=== PATIENT | female | born 1955 | race Caucasian/White ===

== ENCOUNTER 2020-09-28 12:32 | Outpatient (CLI) | payer MEDICARE, OTHER, SELFPAY ==
--- NOTE | 2020-09-28 12:54 | ECG_ITS ---
Measurements Intervals [place] Rate: 73 P: 57 MO: 180 QRS: -39 QRSD: 108 T: 30 QT: 423 QTc: 469 Interpretive Statements SINUS RHYTHM LEFT AXIS DEVIATION INCOMPLETE RIGHT BUNDLE BRANCH BLOCK VOLTAGE CRITERIA FOR LVH MINIMAL Q WAVES- HIGH LATERAL LEADS BORDERLINE ECG Electronically Signed On 09-28-2020 15:17:46 CDT by Antwon Amezcua D.O.
[2020-09-28 13:00] LABS: Anion Gap 6 mmol/L (8-16); Blood Urea Nitrogen 19 mg/dL (7-17); Carbon Dioxide 30 mmol/L (22-30); Chloride 101 mmol/L (98-107); Estimated Glomerular Filt Rate 56; Glucose 95 mg/dL (65-105); Sodium 137 mmol/L (137-145)
== END 2020-09-28 12:33 | disposition home or self-care (01) ==
PROVIDERS: PCP Family Medicine; Visit Provider Anesthesiology
DX: Z01.818 Encounter for other preprocedural examination (principal); Z79.899 Other long term (current) drug therapy; I10 Essential (primary) hypertension
CPT/HCPCS: 36415; 80048; 93005

== ENCOUNTER 2020-10-02 01:16 | Day surgery (SDC) | payer MEDICARE, OTHER, SELFPAY ==
[2020-09-26 14:07] VITALS: BMI 38.5
[2020-10-02] VITALS (12 sets, daily range): BP systolic 115–157; BP diastolic 64–86; PULSE 68–85; RESP 12–16; TEMP 36.1; O2SAT 95–100
--- NOTE | 2020-10-02 07:25 | WPDHPUPDATE1 ---
History and Physical Update Update Date/Time: 10/02/20 07:25 History and Physical has been reviewed, including an updated exam of the patient. There are NO changes in the patient's condition. Risks, benefits, and alternatives have been discussed and questions answered. Patient agrees to proceed with procedure.
[2020-10-02] MEDS: ACETAMINOPHEN 500 MG TABLET 1000 MG PO (08:29)
[2020-10-02] MEDS: CELECOXIB 200 MG CAPSULE PO (08:30)
[2020-10-02] MEDS: LACTATED RINGERS 1,000 ML 30 ML IV CONT ×2 (08:45→11:02)
--- NOTE | 2020-10-02 09:24 | WPDANESEPPF ---
Anes - Initial Pre Proc Eval Procedure: Operation Date: 10/02/20 10:00 Proposed Procedures p Right Ring Finger and Right Thumb Trigger Finger Release - Jeet Rodriguez MD Date/Time: 10/02/20 09:24 Surgeon: Jeet Rodriguez MD Pre Op Diagnosis: right trigger finger Patient Data Age: 64 Gender: F Height: 1.69 m Weight: 108.1 kg Last Vital Signs Temp 97 F L 10/02/20 08:16 Pulse 85 10/02/20 08:16 Resp 16 10/02/20 08:16 BP 152/84 H 10/02/20 08:16 Pulse Ox 97 10/02/20 08:16 Allergies Allergy/AdvReac Type Severity Reaction Status Date / Time No Known Allergies Allergy Verified 10/02/20 08:23 Home Medications Medication Instructions Recorded Confirmed Type acetaminophen 325 mg tablet 325 mg PO Q6H PRN 09/17/20 10/02/20 History calcium carbonate 500 mg (1,250 1 tablet PO DAILY 09/17/20 10/02/20 History mg)-vitamin D3 200 unit tablet chlorthalidone 25 mg tablet 25 mg PO DAILY 09/17/20 10/02/20 History citalopram 20 mg tablet 20 mg PO DAILY 09/17/20 10/02/20 History fluticasone propionate 50 1 spray INTRANASAL PRN 09/17/20 10/02/20 History mcg/actuation nasal spray,suspension levothyroxine 75 mcg tablet 75 mcg PO DAILY 09/17/20 10/02/20 History loratadine 10 mg tablet 10 mg PO DAILY 09/17/20 10/02/20 History multivitamin 1 tablet PO DAILY 09/17/20 10/02/20 History omeprazole 20 mg tablet,delayed 20 mg PO DAILY 09/17/20 10/02/20 History release simvastatin 10 mg tablet 10 mg PO DAILY 09/17/20 10/02/20 History telmisartan 40 mg tablet 40 mg PO DAILY 09/17/20 10/02/20 History vitamins A,C,M-yuoz-[id number] 14,320 1 cap PO BID 09/17/20 10/02/20 History unit-226 mg-200 unit capsule PreserVision AREDS 1 tab-cap PO DAILY 10/02/20 10/02/20 History aspirin [Aspir-Low] 81 mg PO DAILY 10/02/20 10/02/20 History Patient hx anesthesia problems: none Family hx anesthesia problems: none [facility] Past Medical History Medical History (Updated 10/01/20 @ 14:34 by Robin Carbone MD) Hyperlipidemia Hypertension Hypothyroid KITTY (obstructive sleep apnea) Family History Family History Mother Family history of lung cancer, Onset Age: 65 Patient's mother is Sibling Family history of malignant neoplasm of breast in first degree relative Other Cerebrovascular accident Diabetes mellitus Family history of allergic disorder Hypertension Social History Social History Smoking status: Never smoker Alcohol intake: never Living arrangements: alone Spiritual care concerns: No Anes - Eval Final PreProcedure Day of Procedure 10/02/20 09:24 Patient weight: obese Heart: regular rate and rhythm Lungs: clear to auscultation Airway: Mallampati scale class III Neurological: alert and oriented Last oral intake: >/= 8 hours ASA classification: III Emergent: no Anesthetic plan: proceed Anesthesia type and monitoring: general LMA and standard monitoring Informed Consent: The patient's anesthetic plan and its attendant risks and benefits were discussed with the patient/family/POA. Questions were solicited and answers provided to the satisfaction of the patient/family/POA.
[2020-10-02] MEDS: ceFAZolin 2 GM/D5W 50 ML 2 GM/50 ML BAG IVPB (09:41)
[2020-10-02] MEDS: BUPIVACAINE HCL 0.5% PF 30 ML VIAL INFILTRATE (10:09)
--- NOTE | 2020-10-02 11:00 | W.PM.PROC2 ---
Procedure Note - Detailed Date of Procedure 10/02/20 Pre-op Diagnosis RIGHT RING FINGER AND THUMB TRIGGERING Post-op Diagnosis same Procedure Performed RELEASE OF A1 IVAN RIGHT RING FINGER AND THUMB Surgeon Jeet Rodriguez MD Anesthesia general Description of Procedure THE PATIENT WAS TAKEN TO THE OR IN STABLE CONDITION. THE RIGHT UPPER EXTREMITY WAS PREPPED AND DRAPED IN THE USUAL STERILE FASHION. THE TOURNIQUET WAS INFLATED. AN INCISION WAS MADE OVER THE RING FINGER A1 IVAN DOWN THROUGH THE SUBCUTANEOUS TISSUES UNTIL THE A1 IVAN SHEATH WAS VISUALIZED. AN INCISION WAS MADE OVER THE IVAN UNTIL THE FLEXOR TENDON WAS IDENTIFIED. THE INCISION CONTINUED PROXIMALLY AND DISTALLY UNTIL THE IVAN WAS RELEASED AND THE TENDON EXCURSION WAS WITHOUT TRIGGERING. THE TENDONS WERE DIRECTLY VISUALIZED AND WERE INTACT. NEXT AN INCISION WAS MADE OVER THE THUMB A1 IVAN DOWN THROUGH THE SUB CUTANEOUS TISSUES. BOTH DIGITAL NERVES WERE IDENTIFIED AND RETRACTED. THE A1 IVAN WAS THEN RELEASED PROXIMALLY AND DISTALLY UNTIL THE IVAN WAS COMPLETELY RELEASED. THE FLEXOR TENDONS WERE VISUALIZED THEY PASSED THROUGH THE SHEATH WITH NO TRIGGERING. THE TOURNIQUET WAS DEFLATED AND THE WOUNDS WERE WASHED AND THE BLEEDERS WERE CAUTERIZED. THE SKIN WAS REPAIRED WITH 4-0 NYLON. A STERILE DRESSING WAS APPLIED. THE PATIENT WAS EXTUBATED AND SENT TO RECOVERY ROOM. Estimated Blood Loss 1 Complications No immediate complications Condition stable Disposition PACU
[2020-10-02] MEDS: ONDANSETRON INJ 4 MG/2 ML VIAL IV PUSH (11:59)
[2020-10-02] MEDS: diphenhydrAMINE HCl INJ 50 MG/ML VIAL 6.25 MG IV PUSH (12:21)
== END 2020-10-02 13:58 | disposition home or self-care (01) ==
PROVIDERS: PCP Family Medicine; Visit Provider Orthopaedic Surgery
PROC: (CPT 26055; principal; 2020-10-02 10:00)
DX: M65.341 Trigger finger, right ring finger (principal); M65.311 Trigger thumb, right thumb; I10 Essential (primary) hypertension; E78.5 Hyperlipidemia, unspecified; E03.9 Hypothyroidism, unspecified; G47.33 Obstructive sleep apnea (adult) (pediatric); Z79.82 Long term (current) use of aspirin; E66.9 Obesity, unspecified; Z68.37 Body mass index [BMI] 37.0-37.9, adult
CPT/HCPCS: 26055 ×2; 36415; 80048; 93005; A9270; J0690; J1100; J1200; J2250; J2405; J2704; J3010; J7120

== ENCOUNTER 2021-01-03 09:14 | Emergency (ER) | payer MEDICARE, OTHER, SELFPAY ==
[2021-01-03 09:25] VITALS: BP 168/72; PULSE 74; RESP 163; TEMP 36.9; O2SAT 100
--- NOTE | 2021-01-03 10:09 | ED.EYEPROB ---
HPI - Eye Problem General Chief complaint: Eye Problems Stated complaint: right eye swelling Time Seen by Provider: 01/03/21 09:37 History of Present Illness HPI Narrative: Patient presents with eyelid swelling pain and erythema. She was seen by her primary care doctor little bit was put on antibiotics and her symptoms initially were improving and nearly resolved however this morning her symptoms appear to worsen she contacted her primary care doctor and referred to the ER for evaluation. Reports pain is achy, constant, is worse with palpation of her eyelid. She denies any changes to vision denies any fevers or dizziness Related Data Home Medications Medication Instructions Recorded Confirmed calcium carbonate 500 mg (1,250 1 tablet PO DAILY 09/17/20 12/23/20 mg)-vitamin D3 200 unit tablet chlorthalidone 25 mg tablet 25 mg PO DAILY 09/17/20 12/23/20 citalopram 20 mg tablet 20 mg PO DAILY 09/17/20 12/23/20 fluticasone propionate 50 1 spray INTRANASAL PRN 09/17/20 12/23/20 mcg/actuation nasal spray,suspension levothyroxine 75 mcg tablet 75 mcg PO DAILY 09/17/20 12/23/20 loratadine 10 mg tablet 10 mg PO DAILY 09/17/20 12/23/20 multivitamin 1 tablet PO DAILY 09/17/20 12/23/20 omeprazole 20 mg tablet,delayed 20 mg PO DAILY 09/17/20 12/23/20 release simvastatin 10 mg tablet 10 mg PO DAILY 09/17/20 12/23/20 PreserVision AREDS 1 tab-cap PO DAILY 10/02/20 12/23/20 aspirin 81 mg PO DAILY 10/02/20 12/23/20 mecobalamin (vitamin B12) 1,000 2,000 mcg SUBLINGUAL DAILY tablet 12/23/20 12/23/20 mcg disintegrating tablet,sublingual Allergies Allergy/AdvReac Type Severity Reaction Status Date / Time No Known Allergies Allergy Verified 01/03/21 09:32 Review of Systems Review of Systems: CONSTITUTIONAL: Denies fever, chills, or sweats. EYES: Denies visual changes, or discharge. ENT: Denies rhinorrhea, congestion, sore throat, or otalgia. CARDIOVASCULAR: Denies chest pain, palpitations, or edema. RESPIRATORY: Denies cough or dyspnea. GASTROINTESTINAL: Denies abdominal pain, nausea, vomiting, or diarrhea. GENITOURINARY: Denies dysuria or hematuria. SKIN: Denies rash or itching. MUSCULOSKELETAL: Denies back pain, joint pain, or myalgia. NEUROLOGIC: Denies headache, numbness, dizziness, or weakness. PSYCHIATRIC: Denies anxiety or depression. All systems reviewed & are unremarkable except as noted in HPI and below PMFSH Past Medical History Medical History Carpal tunnel syndrome Cataract GERD (gastroesophageal reflux disease) H/O retinal detachment Hyperlipidemia Hypertension Hypothyroid KITTY (obstructive sleep apnea) Surgical History Surgical History History of carpal tunnel surgery (~2018) History of eye surgery (~1989) Hx of cataract extraction (~2019) S/P cervical disc replacement (~2006) Family History Family History Mother Family history of lung cancer, Onset Age: 65 Patient's mother is Sibling Family history of malignant neoplasm of breast in first degree relative Other Cerebrovascular accident Diabetes mellitus Family history of allergic disorder Hypertension Social History Social History Second hand tobacco smoke exposure: No Alcohol intake: never Substance use: never Substance use type: does not use 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 HEAD: Normocephalic, atraumatic. EYES: PERRLA and EOMI without pain. There is erythema and edema to the upper eyel
== END 2021-01-03 10:48 | disposition home or self-care (01) ==
PROVIDERS: Emergency Provider Emergency Medicine; PCP Family Medicine
DX: L03.213 Periorbital cellulitis (principal); Z79.82 Long term (current) use of aspirin; K21.9 Gastro-esophageal reflux disease without esophagitis; E78.5 Hyperlipidemia, unspecified; I10 Essential (primary) hypertension; E03.9 Hypothyroidism, unspecified; G47.33 Obstructive sleep apnea (adult) (pediatric); Z98.49 Cataract extraction status, unspecified eye
CPT/HCPCS: 99281; 99283

== ENCOUNTER 2021-06-19 16:55 | Outpatient (CLI) | payer MEDICARE, OTHER, SELFPAY ==
--- NOTE | ~2021-06-19 | MM_ITS ---
EXAMINATION: MM screening madonna BI w efrain HISTORY: Screening mammogram TECHNIQUE: Craniocaudal and mediolateral oblique 3-D tomosynthesis images were obtained and synthetic 2-D images were generated. CAD analysis was submitted and interpreted. COMPARISON: 02/06/2018, 08/09/2015 bilateral screening mammogram examinations BREAST PARENCHYMAL COMPOSITION: The breasts are almost entirely fatty. FINDINGS: New approximately 6 mm irregular mass is noted posteriorly in the mid-lower lower central l eft breast. Diagnostic left mammogram and left breast ultrasound examination are recommended. There i s no evidence of suspicious mass, calcification, or architectural distortion to suggest malignancy in either breast. There has been no suspicious interval change. IMPRESSION: 1. Approximately 6 mm new irregular mass in posterior mid to lower central left breast 2. Diagnostic left mammogram and left breast ultrasound examination are recommended. BI-RADS Category 0: Incomplete: Needs additional imaging evaluation......... Reviewed, dictated and finalized at location A. IMPRESSION: 1. Approximately 6 mm new irregular mass in posterior mid to lower central left breast 2. Diagnostic left mammogram and left breast ultrasound examination are recomme nded. BI-RADS Category 0: Incomplete: Needs additional imaging evaluation.........
== END 2021-06-19 16:56 | disposition home or self-care (01) ==
PROVIDERS: PCP Family Medicine; Visit Provider Family Medicine
DX: Z12.31 Encounter for screening mammogram for malignant neoplasm of breast (principal); R92.8 Other abnormal and inconclusive findings on diagnostic imaging of breast
CPT/HCPCS: 77063; 77067

== ENCOUNTER 2021-06-26 02:06 | Day surgery (SDC) | payer MEDICARE, OTHER, SELFPAY ==
[2021-06-17 11:15] VITALS: BMI 38.9
[2021-06-26 11:40] VITALS: BP 148/81; PULSE 75; RESP 18; TEMP 36.9; O2SAT 100; BMI 37.3
--- NOTE | 2021-06-26 12:02 | WPDGICN ---
Assessment and Plan Assessment and plan (1) Positive colorectal cancer screening using Cologuard test: Code(s): R19.5 - Other fecal abnormalities Status: Acute Assessment and Plan: Patient found to have a positive Cologuard test. Plan is for neoplasia screening. Further recommendations will be given after colonoscopy. GI Consult Note Consult date/time: 06/26/21 12:02 HPI: Alice Scott is a 65 year old female Presents for screening colonoscopy. Patient recently found to have positive Cologuard test. She reports that her current weight appetite and bowel movements are normal. She denies abdominal pain. She has had no bleeding. Family history is noncontributory. Patient presents today for neoplasia screening. Review of Systems Review of Systems: All systems reviewed & are unremarkable except as noted in HPI and below PMFSH Past Medical History Medical History Carpal tunnel syndrome Cataract GERD (gastroesophageal reflux disease) H/O retinal detachment Hyperlipidemia Hypertension Hypothyroid KITTY (obstructive sleep apnea) Surgical History Surgical History History of carpal tunnel surgery (~2018) History of eye surgery (~1989) Hx of cataract extraction (~2019) S/P cervical disc replacement (~2006) Family History Family History Mother Family history of lung cancer, Onset Age: 65 Patient's mother is Sibling Family history of malignant neoplasm of breast in first degree relative Other Cerebrovascular accident Diabetes mellitus Family history of allergic disorder Hypertension Social History Social History Smoking status: Never smoker Second hand tobacco smoke exposure: No Alcohol intake: never Substance use: never Substance use type: does not use Living arrangements: with family 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 Gender identity (if verbalized by the patient): Female Sexual Orientation (if Verbalized by the Patient): Straight or Heterosexual Spiritual care concerns: No Agree to blood products: Yes Meds Home Medications and Allergies Home Medications Medication Instructions Recorded Confirmed Type calcium carbonate 500 mg-vitamin 1 tablet PO DAILY 09/17/20 06/26/21 History D3 5 mcg (200 unit) tablet fluticasone propionate 50 1 spray INTRANASAL PRN 09/17/20 06/26/21 History mcg/actuation nasal spray,suspension levothyroxine 75 mcg tablet 75 mcg PO DAILY 09/17/20 06/26/21 History loratadine 10 mg tablet 10 mg PO DAILY 09/17/20 06/26/21 History multivitamin 1 tablet PO DAILY 09/17/20 06/26/21 History simvastatin 10 mg tablet 10 mg PO DAILY 09/17/20 06/26/21 History PreserVision AREDS 2 tab-cap PO DAILY 10/02/20 06/26/21 History aspirin 81 mg PO DAILY 10/02/20 06/26/21 History telmisartan 40 mg tablet 60 mg PO DAILY #135 tablet 11/26/20 06/26/21 Rx mecobalamin (vitamin B12) 1,000 1,000 mcg SUBLINGUAL DAILY tablet 12/23/20 06/26/21 History mcg disintegrating tablet,sublingual chlorthalidone 25 mg tablet 25 mg PO DAILY #90 tablet 02/27/21 06/26/21 Rx citalopram 20 mg tablet 20 mg PO DAILY #90 tablet 02/27/21 06/26/21 Rx montelukast 10 mg tablet 10 mg PO QHS #90 tablet 05/07/21 06/26/21 Rx omeprazole 40 mg capsule,delayed 40 mg PO DAILY #90 cap 05/07/21 06/26/21 Rx release metoprolol succinate 25 mg PO HS 06/17/21 06/26/21 History Allergies Allergy/AdvReac Type Severity Reaction Status Date / Time No Known Allergies Allergy Verified 06/26/21 11:52 Vital Signs Vital Signs - 24 hr 06/26/21 11:40 Temperature 98.5 F Pulse Rate 75 Respiratory Rate 18 Blood Pressure 148/81 H Pulse Oximetry 100 Exam Narrative: Physical exam reveals patient
[2021-06-26] MEDS: LACTATED RINGERS 1,000 ML 150 ML IV CONT (12:05)
--- NOTE | 2021-06-26 12:39 | WPDANESEPPF ---
Anes - Initial Pre Proc Eval Procedure: Operation Date: 06/26/21 13:00 Proposed Procedures p Colonoscopy - Sai Alvarado MD Date/Time: 06/26/21 12:39 Surgeon: Sai Alvarado MD Pre Op Diagnosis: positive cologuard Patient Data Age: 65 Gender: F Height: 1.7 m Weight: 108.2 kg Last Vital Signs Temp 98.5 F 06/26/21 11:40 Pulse 75 06/26/21 11:40 Resp 18 06/26/21 11:40 BP 148/81 H 06/26/21 11:40 Pulse Ox 100 06/26/21 11:40 Allergies Allergy/AdvReac Type Severity Reaction Status Date / Time No Known Allergies Allergy Verified 06/26/21 11:52 Home Medications Medication Instructions Recorded Confirmed Type calcium carbonate 500 mg-vitamin 1 tablet PO DAILY 09/17/20 06/26/21 History D3 5 mcg (200 unit) tablet fluticasone propionate 50 1 spray INTRANASAL PRN 09/17/20 06/26/21 History mcg/actuation nasal spray,suspension levothyroxine 75 mcg tablet 75 mcg PO DAILY 09/17/20 06/26/21 History loratadine 10 mg tablet 10 mg PO DAILY 09/17/20 06/26/21 History multivitamin 1 tablet PO DAILY 09/17/20 06/26/21 History simvastatin 10 mg tablet 10 mg PO DAILY 09/17/20 06/26/21 History PreserVision AREDS 2 tab-cap PO DAILY 10/02/20 06/26/21 History aspirin 81 mg PO DAILY 10/02/20 06/26/21 History telmisartan 40 mg tablet 60 mg PO DAILY #135 tablet 11/26/20 06/26/21 Rx mecobalamin (vitamin B12) 1,000 1,000 mcg SUBLINGUAL DAILY tablet 12/23/20 06/26/21 History mcg disintegrating tablet,sublingual chlorthalidone 25 mg tablet 25 mg PO DAILY #90 tablet 02/27/21 06/26/21 Rx citalopram 20 mg tablet 20 mg PO DAILY #90 tablet 02/27/21 06/26/21 Rx montelukast 10 mg tablet 10 mg PO QHS #90 tablet 05/07/21 06/26/21 Rx omeprazole 40 mg capsule,delayed 40 mg PO DAILY #90 cap 05/07/21 06/26/21 Rx release metoprolol succinate 25 mg PO HS 06/17/21 06/26/21 History Patient hx anesthesia problems: none Family hx anesthesia problems: none Results Review: All pre-operative results and documents have been reviewed as part of the pre-operative evaluation. [facility] Past Medical History Medical History Carpal tunnel syndrome Cataract GERD (gastroesophageal reflux disease) H/O retinal detachment Hyperlipidemia Hypertension Hypothyroid KITTY (obstructive sleep apnea) Surgical History Surgical History History of carpal tunnel surgery (~2018) History of eye surgery (~1989) Hx of cataract extraction (~2019) S/P cervical disc replacement (~2006) Family History Family History Mother Family history of lung cancer, Onset Age: 65 Patient's mother is Sibling Family history of malignant neoplasm of breast in first degree relative Other Cerebrovascular accident Diabetes mellitus Family history of allergic disorder Hypertension Social History Social History Smoking status: Never smoker Second hand tobacco smoke exposure: No Alcohol intake: never Substance use: never Substance use type: does not use Living arrangements: with family 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 Gender identity (if verbalized by the patient): Female Sexual Orientation (if Verbalized by the Patient): Straight or Heterosexual Spiritual care concerns: No Agree to blood products: Yes Anes - Eval Final PreProcedure Day of Procedure 06/26/21 12:39 Patient weight: obese Heart: regular rate and rhythm Lungs: clear to auscultation Airway: Mallampati scale class III Neurological: alert and oriented Last oral intake: >/= 8 hours ASA classification: III Emergent: no Anesthetic plan: proceed Anesthesia type and monitoring: general GIVS and standard monitoring Results Review: All pre-operative results and documents have been reviewed
[2021-06-26 13:14] VITALS: BP 118/61; PULSE 63; RESP 15; O2SAT 99
[2021-06-26 13:24] VITALS: BP 125/69; PULSE 61; RESP 22; O2SAT 100
[2021-06-26 13:34] VITALS: BP 149/84; PULSE 61; RESP 20; O2SAT 100
== END 2021-06-26 13:48 | disposition home or self-care (01) ==
PROVIDERS: PCP Family Medicine; Visit Provider Internal Medicine Gastroenterology
PROC: 0DJD8ZZ Inspection of Lower Intestinal Tract, Via Natural or Artificial Opening Endoscopic (ICD-10-PCS; CPT 45378; principal; 2021-06-26 13:00)
DX: Z12.11 Encounter for screening for malignant neoplasm of colon (principal); R19.5 Other fecal abnormalities; I10 Essential (primary) hypertension; E78.5 Hyperlipidemia, unspecified; G47.33 Obstructive sleep apnea (adult) (pediatric); E03.9 Hypothyroidism, unspecified; K21.9 Gastro-esophageal reflux disease without esophagitis; E66.9 Obesity, unspecified; Z68.37 Body mass index [BMI] 37.0-37.9, adult
CPT/HCPCS: G0121; J2704; J7120

== ENCOUNTER 2021-07-02 13:45 | Outpatient (CLI) | payer MEDICARE, OTHER, SELFPAY ==
--- NOTE | ~2021-07-02 | MMUS_ITS ---
EXAMINATION: MM diagnostic madonna LT w efrain, US breast LT limited HISTORY: Approximately 6 mm irregular mass in posterior mid to lower central left breast on 06/19/2021 screening mammogram TECHNIQUE: Additional 3-D tomosynthesis images of the left breast were performed and synthetic 2-D im ages were generated. CAD analysis was submitted and interpreted. High resolution targeted left breast ultrasound was performed. The technologist performing the targeted left breast ultrasound examinamonserrat n, followed by targeted ultrasound performed by myself. (Dr. Bell). COMPARISON: 06/19/2021, 01/27/2018, 08/09/2015 bilateral screening mammogram examinations BREAST PARENCHYMAL COMPOSITION: The breasts are almost entirely fatty. FINDINGS: MAMMOGRAPHIC FINDINGS: There is a new approximately 4.8 x 6 mm mass in the posterior lower central left breast which was not present on either 01/27/2018 or 08/09/2015 mammogram examinations. ULTRASOUND: No sonographic correlate is evident for the 4.8 x 6 mm new mass in the posterior lower central left b reast. IMPRESSION: 1. Suspicious 6 mm mas in the posterior lower central left breast 2. Mammographically guided preoperative wire localization with subsequent surgical excision is recomm ended. BI-RADS category 4, suspicious findings. Dr. Bell telephoned the report and recommendation for preoperative mammographically guided wire local ization and surgical excision of the left breast mass on 07/02/2021 at 1525 hours to extension [id number] fo r the Nurse voicemail at [phone]. I after completion of the ultrasound examination personally showed the patient her prior mammogram im ages and the current mammogram, demonstrating the new development of the left breast mass, which is v juan suspicious in a postmenopausal patient. I indicated that even though the ultrasound examination d id not demonstrate the mass, the mammographic finding was very suspicious for possible breast cancer and that I strongly recommended that this be surgically removed using mammographic guidance for preop erative wire localization. Reviewed, dictated and finalized at location A. IMPRESSION: 1. Suspicious 6 mm mas in the posterior lower central left breast 2. Mammographically guided preoperative wire localization with subsequent surgi hiro excision is recommended. BI-RADS category 4, suspicious findings. Dr. Bell telephoned the report and recommendation for preoperative mammographic ally guided wire localization and surgical excision of the left breast mass on 07/02/2021 at 1525 hours to extension [id number] for the Nurse voicemail at [phone]. I after completion of the ultrasound examination personally showed the patient her prior mammogram images and the current mammogram, demonstrating the new dev elopment of the left breast mass, which is very suspicious in a postmenopausal patient. I indicated that even though the ultrasound examination did not demons trate the mass, the mammographic finding was very suspicious for possible breas t cancer and that I strongly recommended that this be surgically removed using mammographic guidance for preoperative wire localization.
== END 2021-07-02 13:46 | disposition home or self-care (01) ==
LOC: ANHIMG 13:46
PROVIDERS: PCP Family Medicine; Visit Provider Physician Assistant
DX: R92.8 Other abnormal and inconclusive findings on diagnostic imaging of breast (principal)
CPT/HCPCS: 76642; 77061; 77065; G0279

== ENCOUNTER → 2021-11-18 09:15 | Outpatient (CLI) | payer MEDICARE, OTHER, SELFPAY ==
--- NOTE | ~2021-11-18 | XR_ITS ---
XR shoulder LT min 2V DATE: 11/18/2021 10:00 INDICATION: Left shoulder pain TECHNIQUE: 5 views COMPARISON: None FINDINGS: Status post anterior cervical spine surgical fusion at C6-7. Prominent uncovertebral joint spurring on the left at C6-7 is observed. Normal alignment at the acromioclavicular and glenohumeral joints. There is mild glenohumeral osteoar thritis. No fracture, dislocation, periosteal reaction or bone destruction. There is minimal soft tissue calcification superior to the greater tuberosity, possibly mild calcific tendinitis. Osteopenia. IMPRESSION: Possible mild calcific tendinitis of the rotator cuff near its insertion Osteopenia Mild glenohumeral osteoarthritis Status post anterior cervical spine fusion at C6-7 Prominent uncovertebral joint spurring is noted on the left at C6-7 Reviewed, dictated and finalized at location B. IMPRESSION: Possible mild calcific tendinitis of the rotator cuff near its inse rtion Osteopenia Mild glenohumeral osteoarthritis Status post anterior cervical spine fusion at C6-7 Prominent uncovertebral joint spurring is noted on the left at C6-7
--- NOTE | ~2021-11-18 | XR_ITS ---
XR cervical spine 4-5V DATE: 11/18/2021 10:01 INDICATION: Neck pain TECHNIQUE: Standing AP, lateral, open-mouth and swimmer views COMPARISON: None FINDINGS: There is straightening of the cervical spine which may be due to muscle spasm. Status post anterior and interbody surgical fusion at C6-7. There is minimal anterolisthesis at C2-3. Mild degenerative disc disease at C3-4. Moderate to moderately severe degenerative disc disease at C4-5 and C5-6. There is uncovertebral joint spurring in the mid and lower cervical spine as well as degenerative edin nge at the apophyseal joints. IMPRESSION: Status post surgical fusion at C6-7 Extensive cervical spondylosis Straightening of cervical spine which may be due to muscle spasm Reviewed, dictated and finalized at location B.
== END ==
PROVIDERS: PCP Family Medicine; Visit Provider Family Medicine
DX: M47.892 Other spondylosis, cervical region (principal); M85.812 Other specified disorders of bone density and structure, left shoulder; M19.012 Primary osteoarthritis, left shoulder
CPT/HCPCS: 72050; 73030

== ENCOUNTER → 2022-01-21 17:04 | Outpatient (CLI) | payer MEDICARE, OTHER, SELFPAY ==
--- NOTE | ~2022-01-21 | MR_ITS ---
EXAMINATION: MR cervical spine wo con DATE: 01/21/2022 18:06 INDICATION: Cervical radiculopathy. TECHNIQUE: Magnetic resonance imaging (MRI) of the cervical spine was performed without intravenous c ontrast. Sequences included sagittal T2-weighted FSE, sagittal T2-weighted FS FSE, sagittal T1-weight ed FSE, axial MERGE, and axial T2-weighted FSE. COMPARISON: Cervical spine radiographs 11/18/2021 FINDINGS: There is 9 degrees dextrocurvature of cervicothoracic spine. There is 2 mm retrolisthesis o f C4 on C5 and C5 on C6. There is mild chronic anterior wedging of C4 and C5 vertebral bodies. There is moderately decreased disc height at C4-C5 and C5-C6. There are changes of anterior fusion procedur e at C6-C7 with healed interbody bone graft and anterior plate and screws. The spinal cord signal int ensity is normal. The following disc levels are specifically discussed: C2-C3: There is a left central extrusion. There is mild left uncovertebral joint osteoarthritis. Ther e is severe left facet joint osteoarthritis. There is moderate left neural foraminal stenosis. There is no central canal stenosis. C3-C4: The disc is bulging. There is moderate bilateral uncovertebral joint osteoarthritis. There is severe bilateral facet joint osteoarthritis. There is mild bilateral neural foraminal stenosis. There is mild central canal stenosis with ventral indentation of the spinal cord. C4-C5: The disc is bulging. There is severe bilateral uncovertebral joint osteoarthritis. There is se gabriel bilateral facet joint osteoarthritis. There is mild right and severe left neural foraminal steno sis. There is moderate central canal stenosis with ventral and dorsal indentation of the spinal cord. C5-C6: The disc is bulging. There is severe bilateral uncovertebral joint osteoarthritis. There is se gabriel bilateral facet joint osteoarthritis. There is moderate bilateral neural foraminal stenosis. The re is moderate central canal stenosis with ventral and dorsal indentation of the spinal cord. C6-C7: There is mild bilateral uncovertebral joint hypertrophy. There is mild bilateral facet joint h ypertrophy. There is mild left neural foraminal stenosis. There is no central canal stenosis. C7-T1: There is a central protrusion. There is no uncovertebral joint osteoarthritis. There is severe bilateral facet joint osteoarthritis. There is mild bilateral neural foraminal stenosis. There is no central canal stenosis. IMPRESSION: 1. Severe cervical spondylosis. 2. Anterior fusion procedure at C6-C7. Reviewed, dictated and finalized at location A.
== END ==
PROVIDERS: PCP Family Medicine; Visit Provider Physical Medicine & Rehabilitation
DX: M47.22 Other spondylosis with radiculopathy, cervical region (principal); Z98.1 Arthrodesis status
CPT/HCPCS: 72141

== ENCOUNTER 2022-04-08 09:17 | Outpatient (CLI) | payer MEDICARE, OTHER, SELFPAY ==
[2022-04-08 09:28] LABS: Basophils Percent Auto 0.8 % (0.2-1.2); Eosinophils Absolute Auto 0.1 K/mm3 (0-0.3); Eosinophils Percent Auto 1.3 % (0-4.4); Hematocrit 36.5 % (37.0-47.0); Hemoglobin 11.9 g/dL (12.0-15.0); Immature Granulocyte Absolute 0.01 K/mm3 (0.00-0.031); Immature Granulocyte Percent A 0.3 % (0-0.5); Lymphocytes Absolute Auto 0.58 K/mm3 (0.9-3.2); Lymphocytes Percent Auto 14.9 % (18.3-44.2); Mean Corpuscular HGB Conc 32.6 g/dl (32-36); Mean Corpuscular Hemoglobin 30.2 pg (26-34); Mean Corpuscular Volume 92.6 fl (80-100); Mean Platelet Volume 9.4 fl (7.4-10.4); Monocytes Absolute Auto 0.4 K/mm3 (0.1-0.6); Monocytes Percent Auto 9.8 % (2.6-8.5); Neutrophils Absolute Auto 2.8 K/mm3 (1.3-6.7); Neutrophils Percent Auto 72.9 % (45.5-73.1); Platelet Count Result 193 k/mm3 (150-375); Red Blood Count 3.94 M/mm3 (4.2-5.4); Red Cell Distribution Width 13.6 % (11.5-14.5); White Blood Count 3.9 K/mm3 (4.5-10.0)
[2022-04-08 09:35] LABS: Blood Urea Nitrogen 16 mg/dL (8-26); Carbon Dioxide 31 mmol/L (22-30); Chloride 99 mmol/L (98-109); Estimated Glomerular Filt Rate 55; Glucose 94 mg/dL (70-105); Ionized Calcium (POC) 1.29 mmol/L (1.11-1.31); Potassium 3.4 mmol/L (3.5-4.9); Sodium 141 mmol/L (138-146)
[2022-04-08 10:26] LABS: Alanine Aminotransferase 29 U/L (6-35); Albumin Level 4.1 g/dL (3.5-5.1); Alkaline Phosphatase 87 U/L (38-126); Anion Gap 6 mmol/L (8-16); Aspartate Amino Transferase 36 U/L (14-36); Bilirubin,Total 0.6 mg/dL (0.2-1.3); Blood Urea Nitrogen 16 mg/dL (7-17); Calcium 9.4 mg/dL (8.4-10.2); Carbon Dioxide 32 mmol/L (22-30); Chloride 102 mmol/L (98-107); Estimated Glomerular Filt Rate 55; Glucose 93 mg/dL (65-110); Potassium 3.4 mmol/L (3.4-5.0); Sodium 140 mmol/L (137-145)
== END 2022-04-08 09:18 | disposition home or self-care (01) ==
LOC: ANHLAB 09:19
PROVIDERS: PCP Family Medicine; Visit Provider Internal Medicine Hematology & Oncology
DX: C50.912 Malignant neoplasm of unspecified site of left female breast (principal)
CPT/HCPCS: 36415; 80047; 80053; 85025

== ENCOUNTER → 2022-05-26 16:26 | Outpatient (CLI) | payer MEDICARE, OTHER, SELFPAY ==
--- NOTE | ~2022-05-26 | XR_ITS ---
XR foot RT min 3V DATE: 05/26/2022 16:45 INDICATION: Toe pain TECHNIQUE: 4 views COMPARISON: None FINDINGS: There is osteopenia. There is prominent calcification along the distal Achilles tendon consistent with calcific tendinitis . There is very prominent plantar calcaneal enthesopathy. There is severe osteoarthritic change and spurring at the first metatarsophalangeal joint. No fracture, dislocation, periosteal reaction or bone destruction. 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 [employer]
== END ==
PROVIDERS: PCP Family Medicine; Visit Provider Physician Assistant
DX: M85.871 Other specified disorders of bone density and structure, right ankle and foot (principal); M19.071 Primary osteoarthritis, right ankle and foot; M76.61 Achilles tendinitis, right leg
CPT/HCPCS: 73630

== ENCOUNTER 2022-08-10 07:41 | Outpatient (CLI) | payer MEDICARE, OTHER, SELFPAY ==
--- NOTE | ~2022-08-10 | MM_ITS ---
EXAMINATION: MM screening madonna BI w efrain HISTORY: Screening mammogram, family history of breast cancer in her sister, personal history of left breast cancer. TECHNIQUE: Craniocaudal and mediolateral oblique 3-D tomosynthesis images were obtained and synthetic 2-D images were generated. CAD analysis was submitted and interpreted. COMPARISON: 07/02/2021, 06/30/2021, 06/19/2021, 01/27/2018 BREAST PARENCHYMAL COMPOSITION: There are scattered areas of fibroglandular density. FINDINGS: Lumpectomy changes are noted in the left breast. No suspicious mass, calcification, or arch itectural distortion are identified in either breast to suggest malignancy. There has been no suspici ous interval change. IMPRESSION: 1. No mammographic evidence of malignancy. 2. Recommend routine screening mammography in one year. BI-RADS Category 2: Benign finding(s). Reviewed, dictated and finalized at location A.
--- NOTE | ~2022-08-10 | DEXA_ITS ---
Bone Density Report Name: JENNIFER MENDEZ Age: 66 Sex: Female Ethnicity: White Date of : 1955 Indication: postmenopausal; screening for osteoporosis; height loss; cancer; Referring Provider: FERNANDO BYERS Study: Bone densitometry was performed. Exam Date: August 10, 2022 Accession number: [id number] Bone Density: Region BMD T-score Z-score Classification AP Spine(L1-L4) 1.012 -0.3 1.6 Normal Femoral Neck (Left) 0.842 -0.1 1.5 Normal Total Hip (Left) 1.025 0.7 2.0 Normal Femoral Neck (Right) 0.745 -0.9 0.7 Normal Total Hip (Right) 0.932 -0.1 1.2 Normal Total Hip Mean 0.978 0.3 1.6 Normal World Health Organization criteria for BMD impression classify patients as: Normal (T-score at or above -1.0), Osteopenia (T-score between -1.0 and -2.5), or Osteoporosis (T-score at or below -2.5). 10-year Fracture Risk: FRAX not reported because: All T-scores for Spine Total, Hip Total, Femoral Neck at or above -1.0 Previous Exams: Region Exam Age BMD T-score BMD Change BMD Change Date g/cm2 vs Baseline vs Previous Total Hip(Left) 08/10/2022 66 1.025 0.7 0.021 (2.1%) 0.021 (2.1%) 05/11/2018 62 1.004 0.5 Total Hip(Right) 08/10/2022 66 0.932 -0.1 -0.038 (-3.9%) -0.038 (-3.9%) 05/11/2018 62 0.970 0.2 *Denotes significance at 95% confidence level, LSC for Total Hip = 0.027 g/cm2 Clinical Information Provided by Patient: Has used the following medications: Vitamin D, Calcium Has the following medical conditions: Cancer Patient maximum height was 66.5 Menopause Age: 44 No regular weight bearing exercise Drinks caffeinated beverages Onset of menses at age 11 Number of children 2 Impression: The patient has normal bone mass. The BMD for the Total Hip(Right) decreased, changing by -3.9% since the last DXA exam. Discussion: BONE DENSITY IS ABOVE THE MINIMUM DESIRABLE LEVEL AT ALL SKELETAL SITES TESTED. This patient?s bone mineral density is above the minimum desirable level (T-score -1.0 or better) at all sites measured. The patient should follow a healthful lifestyle (good nutrition with adequate calcium and vitamin D, and appropriate weight-bearing exercise). Follow-Up: Consider repeating this study in 3 to 4 years to reassess this patient's status, or sooner if there is some new clinical indication. Reported by: [facility] on 08/10/2022 8:09:00 AM. Reviewed, dictated and finalized at location ARamila MODI
== END 2022-08-10 07:42 | disposition home or self-care (01) ==
LOC: ANHIMG 07:43
PROVIDERS: PCP Family Medicine; Visit Provider Internal Medicine Hematology & Oncology
DX: Z12.31 Encounter for screening mammogram for malignant neoplasm of breast (principal); M85.89 Other specified disorders of bone density and structure, multiple sites
CPT/HCPCS: 77063; 77067; 77080

== ENCOUNTER 2022-08-21 16:14 | Emergency (ER) | payer MEDICARE, OTHER, SELFPAY ==
--- NOTE | 2022-08-21 16:19 | ED.EYEPROB ---
HPI - Eye Problem General Chief complaint: Eye Problems Stated complaint: eye swelling/infection Time Seen by Provider: 08/21/22 16:19 Source: patient Mode of arrival: ambulatory Limitations: no limitations History of Present Illness HPI Narrative: Alice is a 66-year-old female patient presenting to the clinic today with complaints of possible eye infection that began a few days ago. Reports she has been having green drainage, itchy, burning, and puffy eyes. History of periorbital cellulitis in January. Has some redness and swelling under the left eye with tenderness to palpation of this area. Denies any fever or chills. Related Data Home Medications Medication Instructions Recorded Confirmed calcium carbonate 500 mg-vitamin 1 tablet PO DAILY 09/17/20 08/21/22 D3 5 mcg (200 unit) tablet (Calcium 500 + D) fluticasone propionate 50 1 spray intranasal PRN 09/17/20 08/21/22 mcg/actuation nasal spray,suspension (Flonase Allergy Relief) multivitamin 1 tablet PO DAILY 09/17/20 08/21/22 PreserVision AREDS 2 tab-cap PO DAILY 10/02/20 08/21/22 mecobalamin (vitamin B12) 1,000 1,000 mcg sublingual DAILY 12/23/20 08/21/22 mcg disintegrating tablet,sublingual Allergies Allergy/AdvReac Type Severity Reaction Status Date / Time No Known Allergies Allergy Verified 08/21/22 16:24 Review of Systems Review of Systems: Pertinent positives per HPI. Patient denies any fever, chills, rash, headache, visual changes, dizziness, cough, runny nose, sore throat, shortness of breath, chest pain, palpitations, nausea, vomiting, diarrhea, constipation, abdominal pain, or any urinary issues. [facility] Past Medical History Medical History Breast cancer, left Carpal tunnel syndrome Cataract Cervical spondylosis GERD (gastroesophageal reflux disease) H/O retinal detachment Hyperlipidemia Hypertension Hypothyroid Mixed hyperlipidemia KITTY (obstructive sleep apnea) Surgical History Surgical History History of carpal tunnel surgery (~2018) History of eye surgery (~1989) Hx of cataract extraction (~2019) S/P cervical disc replacement (~2006) Family History Family History Mother Family history of lung cancer, Onset Age: 65 Patient's mother is Sibling Family history of malignant neoplasm of breast in first degree relative Other Cerebrovascular accident Diabetes mellitus Family history of allergic disorder Hypertension Social History Social History Smoking status: Never smoker Second hand tobacco smoke exposure: No Alcohol intake: never Substance use: never Substance use type: does not use Lack of Transportation: No Lack of Food: Never True Current Housing: I Have Housing Concerned About Future Housing: No Difficulty Paying Gas/Electric Bills: No Difficulty Paying for Meds: No Currently Unemployed: No Education: Bachelor's Degree Difficulty w/ Childcare or Family Care: No Living arrangements: with family Occupation/Education: occupation 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 There is no relevant family history pertinent to the patient complaint. Exam Narrative: General: Well-developed, well nourished, in no apparent distress Head: Normocephalic, atraumatic Eyes: Pupils equally round and reactive to light bilaterally, EOM intact, bilateral sclera and conjunctive inje
[2022-08-21 16:29] VITALS: BP 178/79; PULSE 74; RESP 16; TEMP 36.9; O2SAT 99
[2022-08-21] MEDS: cefTRIAXone 1 GM, LIDOCAINE HCL 1% LOCAL INJ 2.1 ML IM (16:51)
== END 2022-08-21 17:09 | disposition home or self-care (01) ==
PROVIDERS: Emergency Provider Nurse Practitioner Family; PCP Family Medicine
DX: L03.213 Periorbital cellulitis (principal); K21.9 Gastro-esophageal reflux disease without esophagitis; E78.5 Hyperlipidemia, unspecified; I10 Essential (primary) hypertension; E03.9 Hypothyroidism, unspecified; E78.2 Mixed hyperlipidemia; M47.812 Spondylosis without myelopathy or radiculopathy, cervical region
CPT/HCPCS: 96372; 99213; G0463; J0696

== ENCOUNTER 2022-09-28 07:08 | Emergency (ER) | payer MEDICARE, OTHER, SELFPAY ==
[2022-09-28 07:15] VITALS: BP 151/80; PULSE 97; RESP 16; TEMP 36.5; O2SAT 100
--- NOTE | 2022-09-28 07:29 | ED.EYEPROB ---
HPI - Eye Problem General Chief complaint: Eye Problems Stated complaint: eye swelling Time Seen by Provider: 09/28/22 07:12 History of Present Illness HPI Narrative: This is a 66-year-old female, with past history of periorbital cellulitis, hypothyroidism, who presents emergency department with recurrent episode of periorbital cellulitis. The patient states approximately 10 days ago, she noticed bilateral upper and lower eyelid swelling and redness similar to previous episodes. She states she was seen by her primary care doctor and given eyedrops without improvement. She states she has had 2 prior episodes of this last approximately 1 month ago. She denies eye pain, loss of vision, fevers, or headaches. Related Data Home Medications Medication Instructions Recorded Confirmed calcium carbonate 500 mg-vitamin 1 tablet PO DAILY 09/17/20 08/21/22 D3 5 mcg (200 unit) tablet (Calcium 500 + D) fluticasone propionate 50 1 spray intranasal PRN 09/17/20 08/21/22 mcg/actuation nasal spray,suspension (Flonase Allergy Relief) multivitamin 1 tablet PO DAILY 09/17/20 08/21/22 PreserVision AREDS 2 tab-cap PO DAILY 10/02/20 08/21/22 mecobalamin (vitamin B12) 1,000 1,000 mcg sublingual DAILY 12/23/20 08/21/22 mcg disintegrating tablet,sublingual Allergies Allergy/AdvReac Type Severity Reaction Status Date / Time No Known Allergies Allergy Verified 09/28/22 07:27 Review of Systems Review of Systems: CONSTITUTIONAL: Denies fever, chills, or sweats. EYES: Bilateral eye redness Denies visual changes, or discharge. ENT: Denies rhinorrhea, congestion, sore throat, or otalgia. CARDIOVASCULAR: Denies chest pain, palpitations, or edema. RESPIRATORY: Denies cough or dyspnea. GASTROINTESTINAL: Denies abdominal pain, nausea, vomiting, or diarrhea. SKIN: Redness and swelling of the bilateral eyes denies rash or itching. MUSCULOSKELETAL: Denies back pain, joint pain, or myalgia. NEUROLOGIC: Denies headache, numbness, dizziness, or weakness. PSYCHIATRIC: Denies anxiety or depression. [facility] Past Medical History Medical History Breast cancer, left Carpal tunnel syndrome Cataract Cervical spondylosis GERD (gastroesophageal reflux disease) H/O retinal detachment Hyperlipidemia Hypertension Hypothyroid Mixed hyperlipidemia KITTY (obstructive sleep apnea) Surgical History Surgical History History of carpal tunnel surgery (~2018) History of eye surgery (~1989) Hx of cataract extraction (~2019) S/P cervical disc replacement (~2006) Family History Family History Mother Family history of lung cancer, Onset Age: 65 Patient's mother is Sibling Family history of malignant neoplasm of breast in first degree relative Other Cerebrovascular accident Diabetes mellitus Family history of allergic disorder Hypertension Social History Social History Smoking status: Never smoker Second hand tobacco smoke exposure: No Alcohol intake: never Substance use: never Substance use type: does not use Lack of Transportation: No Lack of Food: Never True Current Housing: I Have Housing Concerned About Future Housing: No Difficulty Paying Gas/Electric Bills: No Difficulty Paying for Meds: No Currently Unemployed: No Education: Bachelor's Degree Difficulty w/ Childcare or Family Care: No Living arrangements: with family Occupation/Education: occupation 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
[2022-09-28] MEDS: cefTRIAXone 1 GM VIAL 0.5 GM IM (07:36)
== END 2022-09-28 07:41 | disposition home or self-care (01) ==
PROVIDERS: Emergency Provider Preventive Medicine Aerospace Medicine; PCP Family Medicine
DX: L03.213 Periorbital cellulitis (principal); I10 Essential (primary) hypertension; E03.9 Hypothyroidism, unspecified; E78.2 Mixed hyperlipidemia; K21.9 Gastro-esophageal reflux disease without esophagitis; G47.33 Obstructive sleep apnea (adult) (pediatric); Z85.3 Personal history of malignant neoplasm of breast; Z98.49 Cataract extraction status, unspecified eye
CPT/HCPCS: 96372; 99283; J0696

== ENCOUNTER 2022-10-15 15:06 | Outpatient (CLI) | payer MEDICARE, OTHER, SELFPAY ==
--- NOTE | ~2022-10-15 | CT_ITS ---
CT scan of the orbits CLINICAL HISTORY: Periorbital sialitis TECHNIQUE: Following intravenous administration of 75 cc of Omnipaque 350 contrast material, axial im aging of the orbits was performed. Sagittal and coronal reformatted images were constructed. Dose red uction technique was used on this scan by utilizing automated exposure control and iterative reconstr uction technique. The dose-length product (DLP) was 194.70 mGy-cm. Findings: I glands are symmetric in size and position. Extraocular muscles appear unremarkable. Intra orbital fat is preserved. No abnormal intraorbital density or fluid collection seen. Paravertebral so ft tissues also appear unremarkable bilaterally. No abscess evident. There is minimal left maxillary and right sphenoid sinus disease. Remaining paranasal sinuses and mas toid air cells are clear. IMPRESSION: No intraorbital or periorbital abnormality identified. No abscess identified. Reviewed, dictated and finalized at [facility].
[2022-10-15 16:30] LABS: Estimated Glomerular Filt Rate 50
== END 2022-10-15 15:07 | disposition home or self-care (01) ==
LOC: ANHIMG 15:08
PROVIDERS: PCP Family Medicine; Visit Provider Physician Assistant Medical
DX: L03.213 Periorbital cellulitis (principal)
CPT/HCPCS: 70481; Q9967

== ENCOUNTER 2023-01-07 10:01 | Outpatient (CLI) | payer MEDICARE, OTHER, SELFPAY ==
[2023-01-07 10:22] LABS: Basophils Percent Auto 0.9 % (0.2-1.2); Eosinophils Absolute Auto 0.1 K/mm3 (0-0.3); Eosinophils Percent Auto 3.3 % (0-4.4); Hematocrit 34.9 % (37.0-47.0); Hemoglobin 11.7 g/dL (12.0-15.0); Immature Granulocyte Absolute 0.01 K/mm3 (0.00-0.031); Immature Granulocyte Percent A 0.3 % (0-0.5); Lymphocytes Absolute Auto 0.63 K/mm3 (0.9-3.2); Lymphocytes Percent Auto 19.1 % (18.3-44.2); Mean Corpuscular HGB Conc 33.5 g/dl (32-36); Mean Corpuscular Volume 89.5 fl (80-100); Mean Platelet Volume 9.5 fl (7.4-10.4); Monocytes Absolute Auto 0.4 K/mm3 (0.1-0.6); Monocytes Percent Auto 11.2 % (2.6-8.5); Neutrophils Absolute Auto 2.1 K/mm3 (1.3-6.7); Neutrophils Percent Auto 65.2 % (45.5-73.1); Platelet Count Result 218 k/mm3 (150-375); Red Cell Distribution Width 12.8 % (11.5-14.5); White Blood Count 3.3 K/mm3 (4.5-10.0)
[2023-01-07 12:14] LABS: Alanine Aminotransferase 22 U/L (6-35); Albumin Level 4.2 g/dL (3.5-5.1); Alkaline Phosphatase 83 U/L (38-126); Anion Gap 8 mmol/L (8-16); Aspartate Amino Transferase 48 U/L (14-36); Bilirubin,Total 0.6 mg/dL (0.2-1.3); Blood Urea Nitrogen 15 mg/dL (7-17); Calcium 9.5 mg/dL (8.4-10.2); Carbon Dioxide 27 mmol/L (22-30); Chloride 101 mmol/L (98-107); Estimated Glomerular Filt Rate > 60; Glucose 116 mg/dL (65-110); Potassium 3.2 mmol/L (3.4-5.0); Sodium 136 mmol/L (137-145)
== END 2023-01-07 10:02 | disposition home or self-care (01) ==
LOC: ANHLAB 10:04
PROVIDERS: PCP Family Medicine; Visit Provider Internal Medicine Hematology & Oncology
DX: C50.912 Malignant neoplasm of unspecified site of left female breast (principal)
CPT/HCPCS: 36415; 80053; 85025

== ENCOUNTER 2023-05-06 14:35 | Outpatient (CLI) | payer MEDICARE, OTHER, SELFPAY ==
[2023-05-06 15:19] LABS: Hematocrit 35.6 % (37.0-47.0); Hemoglobin 11.4 g/dL (12.0-15.0); Mean Corpuscular Hemoglobin 29.4 pg (26-34); Mean Corpuscular Volume 91.8 fl (80-100); Mean Platelet Volume 10.5 fl (7.4-10.4); Platelet Count Result 195 k/mm3 (150-375); Red Blood Count 3.88 M/mm3 (4.2-5.4); Red Cell Distribution Width 13.7 % (11.5-14.5); White Blood Count 5.5 K/mm3 (4.5-10.0)
[2023-05-06 18:26] LABS: Iron 87 ug/dL (37-170)
[2023-05-06 18:43] LABS: Percent Iron Saturation 22 % (20-50)
== END 2023-05-06 14:36 | disposition home or self-care (01) ==
LOC: ANHLAB 14:38
PROVIDERS: PCP Family Medicine; Visit Provider Physician Assistant
DX: D64.9 Anemia, unspecified (principal)
CPT/HCPCS: 36415; 82728; 83540; 83550; 85027

== ENCOUNTER 2023-05-26 15:53 | Outpatient (CLI) | payer MEDICARE, OTHER, SELFPAY ==
[2023-05-26 20:48] LABS: Free T4 Free Thyroxine 1.21 ng/mL (0.78-2.19)
== END 2023-05-26 15:54 | disposition home or self-care (01) ==
PROVIDERS: PCP Family Medicine; Referring Provider Internal Medicine Hematology & Oncology; Visit Provider Physician Assistant
DX: C50.912 Malignant neoplasm of unspecified site of left female breast (principal); E03.9 Hypothyroidism, unspecified; R53.83 Other fatigue
CPT/HCPCS: 36415; 84439; 84443

== ENCOUNTER 2023-06-03 09:02 | Outpatient (CLI) | payer MEDICARE, OTHER, SELFPAY ==
[2023-06-03 09:17] LABS: Basophils Percent Auto 0.9 % (0.2-1.2); Eosinophils Absolute Auto 0.1 K/mm3 (0-0.3); Eosinophils Percent Auto 3.1 % (0-4.4); Hematocrit 36.4 % (37.0-47.0); Hemoglobin 11.9 g/dL (12.0-15.0); Immature Granulocyte Absolute 0.01 K/mm3 (0.00-0.031); Immature Granulocyte Percent A 0.2 % (0-0.5); Lymphocytes Absolute Auto 0.91 K/mm3 (0.9-3.2); Lymphocytes Percent Auto 19.9 % (18.3-44.2); Mean Corpuscular HGB Conc 32.7 g/dl (32-36); Mean Corpuscular Hemoglobin 29.3 pg (26-34); Mean Corpuscular Volume 89.7 fl (80-100); Mean Platelet Volume 9.9 fl (7.4-10.4); Monocytes Absolute Auto 0.5 K/mm3 (0.1-0.6); Monocytes Percent Auto 9.8 % (2.6-8.5); Neutrophils Percent Auto 66.1 % (45.5-73.1); Platelet Count Result 190 k/mm3 (150-375); Red Blood Count 4.06 M/mm3 (4.2-5.4); White Blood Count 4.6 K/mm3 (4.5-10.0)
[2023-06-03 09:23] LABS: Blood Urea Nitrogen 21 mg/dL (8-26); Carbon Dioxide 30 mmol/L (22-30); Chloride 97 mmol/L (98-109); Estimated Glomerular Filt Rate 50; Glucose 115 mg/dL (70-105); Ionized Calcium (POC) 1.26 mmol/L (1.11-1.31); Potassium 3.6 mmol/L (3.5-4.9); Sodium 138 mmol/L (138-146)
[2023-06-03 10:26] LABS: Alanine Aminotransferase 20 U/L (6-35); Alkaline Phosphatase 86 U/L (38-126); Anion Gap 7 mmol/L (8-16); Aspartate Amino Transferase 27 U/L (14-36); Bilirubin,Total 0.5 mg/dL (0.2-1.3); Blood Urea Nitrogen 21 mg/dL (7-17); Calcium 9.7 mg/dL (8.4-10.2); Carbon Dioxide 30 mmol/L (22-30); Chloride 100 mmol/L (98-107); Estimated Glomerular Filt Rate 55; Glucose 117 mg/dL (65-110); Potassium 3.6 mmol/L (3.4-5.0); Sodium 137 mmol/L (137-145)
[2023-06-06 06:56] LABS: CA 15-3 22 U/mL (<32)
== END 2023-06-03 09:03 | disposition home or self-care (01) ==
LOC: ANHLAB 09:06
PROVIDERS: PCP Family Medicine; Visit Provider Internal Medicine Hematology & Oncology
DX: C50.912 Malignant neoplasm of unspecified site of left female breast (principal)
CPT/HCPCS: 36415; 80047; 80053; 85025; 86300

== ENCOUNTER 2023-06-08 10:51 | Emergency (ER) | payer MEDICARE, OTHER, SELFPAY ==
[2023-06-08 11:01] VITALS: BP 134/63; PULSE 69; RESP 16; TEMP 36.8; O2SAT 97
--- NOTE | 2023-06-08 11:09 | ED.URI ---
HPI - URI/Sore Throat General Chief Complaint: Upper Respiratory Infection Stated Complaint: Sore Throat, Cough, Congestion Time Seen by Provider: 06/08/23 11:15 Source: patient and RN notes reviewed Mode of arrival: ambulatory Limitations: no limitations History of Present Illness HPI Narrative: 67-year-old female presents with concern for 2 day history of nasal congestion, drainage, sore throat, cough, hoarse voice. Reports [id number] medications are not helping. She reports chills and sweats. MD elicited complaint: cough Related Data Home Medications Medication Instructions Recorded Confirmed calcium carbonate 500 mg-vitamin 1 tablet PO DAILY 09/17/20 05/13/23 D3 5 mcg (200 unit) tablet (Calcium 500 + D) fluticasone propionate 50 1 spray intranasal PRN 09/17/20 05/13/23 mcg/actuation nasal spray,suspension (Flonase Allergy Relief) multivitamin 1 tablet PO DAILY 09/17/20 05/13/23 PreserVision AREDS 2 tab-cap PO DAILY 10/02/20 05/13/23 mecobalamin (vitamin B12) 1,000 1,000 mcg sublingual DAILY 12/23/20 05/13/23 mcg disintegrating tablet,sublingual Allergies Allergy/AdvReac Type Severity Reaction Status Date / Time No Known Allergies Allergy Verified 05/13/23 14:05 Review of Systems Review of Systems: CONSTITUTIONAL: Reports malaise, chills, sweats EYES: Denies visual changes, redness, or discharge. ENT: Reports rhinorrhea, congestion, and sore throat. CARDIOVASCULAR: Denies chest pain, palpitations, or edema. RESPIRATORY: Reports cough. Denies dyspnea. GASTROINTESTINAL: Denies abdominal pain, nausea, vomiting, diarrhea SKIN: Denies rash or itching. MUSCULOSKELETAL: Denies myalgia. NEUROLOGIC: Denies headache. All systems reviewed & are unremarkable except as noted in HPI and below PMFSH Past Medical History Medical History Breast cancer, left Carpal tunnel syndrome Cataract Cervical spondylosis GERD (gastroesophageal reflux disease) H/O retinal detachment Hyperlipidemia Hypertension Hypothyroid Left knee DJD Mixed hyperlipidemia KITTY (obstructive sleep apnea) Surgical History Surgical History History of carpal tunnel surgery (~2019) History of eye surgery (~1989) Hx of cataract extraction (~2019) S/P cervical disc replacement (~2006) Family History Family History Mother Family history of lung cancer, Onset Age: 65 Patient's mother is Sibling Family history of malignant neoplasm of breast in first degree relative Other Cerebrovascular accident Diabetes mellitus Family history of allergic disorder Hypertension Social History Social History Smoking status: Never smoker Second hand tobacco smoke exposure: No Alcohol intake: never Substance use: never Substance use type: does not use Lack of Transportation: No Lack of Food: Never True Current Housing: I Have Housing Concerned About Future Housing: No Difficulty Paying Gas/Electric Bills: No Difficulty Paying for Meds: No Currently Unemployed: No Education: Bachelor's Degree Difficulty w/ Childcare or Family Care: No Living arrangements: with family Occupation/Education: occupation 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 There is no relevant family history pertinent to the presenting complaint Exam Narrative: GENERAL: Well-appearing, well-nourished, and in no acute distress. HEAD: Normocephalic EYES: PERRLA, conjunctivae clear ENT: Nares dina
== END 2023-06-08 11:36 | disposition home or self-care (01) ==
PROVIDERS: Emergency Provider Nurse Practitioner; PCP Family Medicine
DX: J40 Bronchitis, not specified as acute or chronic (principal); Z20.822 Contact with and (suspected) exposure to COVID-19; K21.9 Gastro-esophageal reflux disease without esophagitis; I10 Essential (primary) hypertension; E03.9 Hypothyroidism, unspecified; E78.2 Mixed hyperlipidemia; M17.12 Unilateral primary osteoarthritis, left knee
CPT/HCPCS: 87081; 87426; 87804; 87880; 99213; G0463

== ENCOUNTER 2023-08-27 17:41 | Emergency (ER) | payer MEDICARE, OTHER, SELFPAY ==
[2023-08-27 17:54] VITALS: BP 171/78; PULSE 75; RESP 16; TEMP 36.6; O2SAT 98
--- NOTE | 2023-08-27 18:02 | ED.SKABFB ---
HPI - Skin/Abscess/Foreign Bdy General Chief complaint: Skin/Abscess/Foreign Body Stated complaint: RED SPOT ON NECK Time Seen by Provider: 08/27/23 17:58 Source: patient and RN notes reviewed Mode of arrival: ambulatory Limitations: no limitations History of Present Illness HPI narrative: Patient presents today complaining of severely pruritic rash to the left neck x1 week, worse over the past 2 days. Reports itching and burning. She has been applying antibiotic ointment without relief. Denies any new household products, medications, exposure to plants animals. Related Data Home Medications Medication Instructions Recorded Confirmed calcium carbonate 500 mg-vitamin 1 tablet PO DAILY 09/17/20 08/27/23 D3 5 mcg (200 unit) tablet (Calcium 500 + D) fluticasone propionate 50 1 spray intranasal PRN 09/17/20 08/27/23 mcg/actuation nasal spray,suspension (Flonase Allergy Relief) multivitamin 1 tablet PO DAILY 09/17/20 08/27/23 PreserVision AREDS 2 tab-cap PO DAILY 10/02/20 08/27/23 mecobalamin (vitamin B12) 1,000 1,000 mcg sublingual DAILY 12/23/20 08/27/23 mcg disintegrating tablet,sublingual cyclosporine 0.05 % eye drops in a 1 drp EACH EYE Q12H 06/25/23 06/25/23 dropperette (Restasis) Allergies Allergy/AdvReac Type Severity Reaction Status Date / Time No Known Allergies Allergy Verified 08/27/23 17:49 Review of Systems Review of Systems: CONSTITUTIONAL: Denies body aches, fever, chills, or sweats. EYES: Denies visual changes, redness, or discharge. ENT: Denies rhinorrhea, congestion, sore throat, or otalgia. CARDIOVASCULAR: Denies chest pain, palpitations, or edema. RESPIRATORY: Denies cough or dyspnea. GASTROINTESTINAL: Denies abdominal pain, nausea, vomiting, or diarrhea. GENITOURINARY: Denies dysuria or hematuria. SKIN: Denies itching, or wounds.+ rash MUSCULOSKELETAL: Denies back pain, joint pain, or myalgia. NEUROLOGIC: Denies headache, numbness, tingling, or weakness. PSYCH: Denies depression or anxiety. [facility] Past Medical History Medical History Breast cancer, left Carpal tunnel syndrome Cataract Cervical spondylosis GERD (gastroesophageal reflux disease) H/O retinal detachment Hyperlipidemia Hypertension Hypothyroid Left knee DJD Mixed hyperlipidemia KITTY (obstructive sleep apnea) Surgical History Surgical History History of carpal tunnel surgery (~2018) History of eye surgery (~1989) Hx of cataract extraction (~2019) S/P cervical disc replacement (~2006) Family History Family History Mother Family history of lung cancer, Onset Age: 65 Patient's mother is Sibling Family history of malignant neoplasm of breast in first degree relative Other Cerebrovascular accident Diabetes mellitus Family history of allergic disorder Hypertension Social History Social History Smoking status: Never smoker Second hand tobacco smoke exposure: No Alcohol intake: never Substance use: never Substance use type: does not use Lack of Transportation: No Lack of Food: Never True Current Housing: I Have Housing Concerned About Future Housing: No Difficulty Paying Gas/Electric Bills: No Difficulty Paying for Meds: No Currently Unemployed: No Education: Bachelor's Degree Difficulty w/ Childcare or Family Care: No Living arrangements: with family Occupation/Education: occupation 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
== END 2023-08-27 18:10 | disposition home or self-care (01) ==
PROVIDERS: Emergency Provider Nurse Practitioner; PCP Family Medicine
DX: L25.9 Unspecified contact dermatitis, unspecified cause (principal); K21.9 Gastro-esophageal reflux disease without esophagitis; I10 Essential (primary) hypertension; E03.9 Hypothyroidism, unspecified; M17.12 Unilateral primary osteoarthritis, left knee; E78.2 Mixed hyperlipidemia; Z85.3 Personal history of malignant neoplasm of breast
CPT/HCPCS: 99213; G0463

== ENCOUNTER 2023-10-11 13:31 | Outpatient (CLI) | payer MEDICARE, OTHER, SELFPAY ==
--- NOTE | ~2023-10-11 | MM_ITS ---
EXAMINATION: MM screening madonna BI w efrain HISTORY: Screening TECHNIQUE: Craniocaudal and mediolateral oblique 3-D tomosynthesis images were obtained and synthetic 2-D images were generated. CAD analysis was submitted and interpreted. COMPARISON: Comparison to multiple prior studies sequentially, with oldest reviewed study dated 10/2017. BREAST PARENCHYMAL COMPOSITION: Not dense: There are scattered areas of fibroglandular density. FINDINGS: Stable lumpectomy changes in the left breast. There is no evidence of suspicious mass, calc ification, or architectural distortion to suggest malignancy in either breast. There has been no susp icious interval change. IMPRESSION: 1. No mammographic evidence of malignancy. 2. Recommend routine screening mammography in one year. BI-RADS Category 2: Benign finding(s). Reviewed, dictated and finalized at location B.
== END 2023-10-11 13:32 | disposition home or self-care (01) ==
PROVIDERS: PCP Family Medicine; Visit Provider Internal Medicine Hematology & Oncology
DX: Z12.31 Encounter for screening mammogram for malignant neoplasm of breast (principal)
CPT/HCPCS: 77063; 77067

== ENCOUNTER 2023-10-28 15:31 | Outpatient (CLI) | payer MEDICARE, OTHER, SELFPAY ==
[2023-10-28 15:43] LABS: Basophils Percent Auto 0.6 % (0.2-1.2); Eosinophils Absolute Auto 0.1 K/mm3 (0-0.3); Eosinophils Percent Auto 2.2 % (0-4.4); Hematocrit 35.6 % (37.0-47.0); Hemoglobin 11.5 g/dL (12.0-15.0); Immature Granulocyte Absolute 0.01 K/mm3 (0.00-0.031); Immature Granulocyte Percent A 0.2 % (0-0.5); Lymphocytes Absolute Auto 1.43 K/mm3 (0.9-3.2); Mean Corpuscular HGB Conc 32.3 g/dl (32-36); Mean Corpuscular Volume 89.9 fl (80-100); Monocytes Absolute Auto 0.5 K/mm3 (0.1-0.6); Monocytes Percent Auto 9.7 % (2.6-8.5); Neutrophils Absolute Auto 2.9 K/mm3 (1.3-6.7); Neutrophils Percent Auto 58.3 % (45.5-73.1); Platelet Count Result 206 k/mm3 (150-375); Red Blood Count 3.96 M/mm3 (4.2-5.4); Red Cell Distribution Width 12.5 % (11.5-14.5); White Blood Count 4.9 K/mm3 (4.5-10.0)
[2023-10-28 16:32] LABS: Alanine Aminotransferase 23 U/L (6-35); Albumin Level 4.1 g/dL (3.5-5.1); Alkaline Phosphatase 95 U/L (38-126); Anion Gap 9 mmol/L (4-12); Aspartate Amino Transferase 30 U/L (14-36); Bilirubin,Total 0.3 mg/dL (0.2-1.3); Blood Urea Nitrogen 16 mg/dL (7-17); Calcium 9.4 mg/dL (8.4-10.2); Carbon Dioxide 32 mmol/L (22-30); Chloride 96 mmol/L (98-107); Estimated Glomerular Filt Rate 55; Glucose 121 mg/dL (65-110); Potassium 3.3 mmol/L (3.4-5.0); Sodium 137 mmol/L (137-145)
[2023-10-29 12:23] LABS: CA 15-3 21 U/mL (<32)
== END 2023-10-28 15:32 | disposition home or self-care (01) ==
LOC: ANHLAB 15:33
PROVIDERS: PCP Family Medicine; Visit Provider Internal Medicine Hematology & Oncology
DX: C50.912 Malignant neoplasm of unspecified site of left female breast (principal)
CPT/HCPCS: 36415; 80053; 85025; 86300

== ENCOUNTER 2023-12-09 08:43 | Outpatient (CLI) | payer MEDICARE, OTHER, SELFPAY ==
[2023-12-09 09:08] LABS: Basophils Percent Auto 0.8 % (0.2-1.2); Eosinophils Absolute Auto 0.1 K/mm3 (0-0.3); Eosinophils Percent Auto 1.9 % (0-4.4); Hematocrit 34.7 % (37.0-47.0); Hemoglobin 11.4 g/dL (12.0-15.0); Immature Granulocyte Absolute 0.01 K/mm3 (0.00-0.031); Immature Granulocyte Percent A 0.2 % (0-0.5); Lymphocytes Absolute Auto 0.99 K/mm3 (0.9-3.2); Lymphocytes Percent Auto 20.6 % (18.3-44.2); Mean Corpuscular HGB Conc 32.9 g/dl (32-36); Mean Corpuscular Volume 88.3 fl (80-100); Mean Platelet Volume 9.7 fl (7.4-10.4); Monocytes Absolute Auto 0.5 K/mm3 (0.1-0.6); Monocytes Percent Auto 9.4 % (2.6-8.5); Neutrophils Absolute Auto 3.2 K/mm3 (1.3-6.7); Neutrophils Percent Auto 67.1 % (45.5-73.1); Platelet Count Result 207 k/mm3 (150-375); Red Blood Count 3.93 M/mm3 (4.2-5.4); Red Cell Distribution Width 13.8 % (11.5-14.5); White Blood Count 4.8 K/mm3 (4.5-10.0)
[2023-12-09 10:21] LABS: Alanine Aminotransferase 21 U/L (6-35); Albumin Level 4.1 g/dL (3.5-5.1); Alkaline Phosphatase 85 U/L (38-126); Anion Gap 6 mmol/L (4-12); Aspartate Amino Transferase 32 U/L (14-36); Bilirubin,Total 0.6 mg/dL (0.2-1.3); Blood Urea Nitrogen 21 mg/dL (7-17); Calcium 9.8 mg/dL (8.4-10.2); Carbon Dioxide 31 mmol/L (22-30); Chloride 97 mmol/L (98-107); Cholesterol 161 mg/dL (0-200); Estimated Glomerular Filt Rate 49; Glucose 106 mg/dL (65-110); HDL Direct 53 mg/dL; Potassium 3.7 mmol/L (3.4-5.0); Sodium 134 mmol/L (137-145); Triglycerides 114 mg/dL (<150)
[2023-12-09 10:32] LABS: LDL Cholesterol Direct 77 mg/dL
[2023-12-11 06:55] LABS: CA 15-3 22 U/mL (<32)
== END 2023-12-09 08:44 | disposition home or self-care (01) ==
LOC: ANHLAB 08:46
PROVIDERS: PCP Family Medicine; Visit Provider Internal Medicine Hematology & Oncology
DX: E78.2 Mixed hyperlipidemia (principal); E03.9 Hypothyroidism, unspecified; Z13.1 Encounter for screening for diabetes mellitus; C50.912 Malignant neoplasm of unspecified site of left female breast
CPT/HCPCS: 36415; 80053; 80061; 83036; 84443; 85025; 86300

== ENCOUNTER 2023-12-24 09:23 | Outpatient (CLI) | payer MEDICARE, OTHER, SELFPAY ==
--- NOTE | ~2023-12-24 | CT_ITS ---
EXAMINATION: CT sinus wo con DATE: 12/24/2023 09:34 INDICATION: Chronic ethmoid sinusitis. TECHNIQUE: Computed tomography (CT) of the paranasal sinuses was performed without intravenous contra st. Iterative reconstruction technique was employed. The dose-length product was 280.89 mGy-cm. COMPARISON: None FINDINGS: The frontal sinuses are clear. There is mild mucosal thickening in the bilateral ethmoid si nuses and maxillary sinuses. The sphenoid sinuses are clear. The nasal septum is in midline. The osti omeatal units are patent. There is anteroposterior elongation of the ocular globes. There are likely changes of ocular lens replacement surgeries. IMPRESSION: 1. Mild mucosal thickening in the paranasal sinuses. Reviewed, dictated and finalized at location A.
== END 2023-12-24 09:24 | disposition home or self-care (01) ==
LOC: MICIMG 09:24
PROVIDERS: PCP Family Medicine; Visit Provider Otolaryngology
DX: J32.2 Chronic ethmoidal sinusitis (principal)
CPT/HCPCS: 70486

== ENCOUNTER 2024-05-25 14:24 | Outpatient (CLI) | payer MEDICARE, OTHER, SELFPAY ==
[2024-05-25 15:08] LABS: Mean Corpuscular HGB Conc 32.4 g/dl (32-36); Mean Corpuscular Hemoglobin 29.2 pg (26-34); Mean Platelet Volume 10.7 fl (7.4-10.4); Platelet Count Result 208 k/mm3 (150-375); Red Blood Count 4.11 M/mm3 (4.2-5.4); Red Cell Distribution Width 13.3 % (11.5-14.5); White Blood Count 4.5 K/mm3 (4.5-10.0)
[2024-05-25 15:14] LABS: Add Urine Microscopic? YES; Appearance Urine Clear (Clear); Bacteria Urine None Seen /hpf; Bilirubin Urine Negative (Negative); Blood Urine Negative (Negative); Color Urine Yellow (Yellow); Glucose Urine UA Negative (Negative); Ketones Urine Negative (Negative); Leukocyte Esterase Ur 1+ LEU/UL (Negative); Nitrate Urine Negative (Negative); Non Pathogenic Casts 0-2; Protein Urine Negative (Negative); RBC Urine 0-2 /hpf (0-2); Specific Grav Ur 1.012 (1.001-1.035); Squamous Epithelial Cell Urine None Seen /hpf (Few); pH Urine 6.5 (5.0-9.0)
[2024-05-25 15:22] LABS: Alanine Aminotransferase 21 U/L (6-35); Albumin Level 4.2 g/dL (3.5-5.1); Alkaline Phosphatase 85 U/L (38-126); Anion Gap 6 mmol/L (4-12); Aspartate Amino Transferase 31 U/L (14-36); Bilirubin,Total 0.5 mg/dL (0.2-1.3); Blood Urea Nitrogen 18 mg/dL (7-17); Calcium 9.6 mg/dL (8.4-10.2); Carbon Dioxide 33 mmol/L (22-30); Chloride 100 mmol/L (98-107); Cholesterol 167 mg/dL (0-200); Estimated Glomerular Filt Rate 53; Glucose 109 mg/dL (65-110); HDL Direct 47 mg/dL; Potassium 3.9 mmol/L (3.4-5.0); Sodium 139 mmol/L (137-145); Triglycerides 253 mg/dL (<150)
[2024-05-25 15:31] LABS: LDL Cholesterol Direct 79 mg/dL
[2024-05-25 15:39] LABS: Hemoglobin A1C 5.4 % (<5.7)
--- OUTSIDE RECORDS SUMMARY | 2024-05-25 15:47 | XMS_ITS | Clinical Summary ---
Author Organization [facility] Address [address] [place] [address] Phone Care Team Providers Care Box Brander Name Role Phone Amelia Bowers MD Primary Care Provider [phone] Allergies No known active allergies Medications metoprolol succinate (TOPROL XL) 25 mg Extended Release 24 hour tablet Take 25 mg by mouth daily at bedtime. 2 Active omeprazole (PriLOSEC) 40 mg Capsule, Delayed Release(E.C.) Take 40 mg by mouth daily. 2 Active chlorthalidone (HYGROTON) 25 mg tablet 2 Active montelukast (SINGULAIR) 10 mg tablet 2 Active citalopram (CeleXA) 20 mg tablet 3 Active montelukast (SINGULAIR) 10 mg tablet Take 10 mg by mouth. 4 025 Active azelastine (ASTELIN) 137 mcg/actuation nasal spray Administer 2 Sprays in each nostril see administration instructions. 4 Active Active Problems Patient Care Coordination No te Formatting of this note migh t be different from the original. Primary Care: Amelia Bowers MD Referring Provider: No referring provider defined for this encounter. Other: Dr. Tammy Gaytan MD Problem Noted Date Diagnosed Date History of left breast cancer 11/12/2022 Malignant neoplasm of left female breast 022 Abnormality of left breast on screening mammogra m 07/29/2021 Family history of breast cancer in sister 2021 Encounters Date Type Department Care Team Description 05/23/2024 External Device Data STL ABSTRACTION Provider, Abstract 05/10/2024 External Device Data STL ABSTRACTION Provider, Abstract 05/09/2024 External Device Data STL ABSTRACTION Provider, Abstract 04/18/2024 External Device Data STL ABSTRACTION Provider, Abstract 03/28/2024 External Device Data STL ABSTRACTION Provider, Abstract from Last 3 Months Family History Medical History Relation Name Comments Lung Cancer Mother 65 Brain Cancer Paternal Grandfather unk age Breast Cancer Sister 55 Relation Name Status Comments Mother 65 Paternal Grandfather unk age Sister 55 Alive Social History Tobacco Use Types Packs/Day Years Used Date Smoking Tobacco: Never Smokeless Tobacco: Never Tobacco Cessation:Counseling Given: Not Answered Alcohol Use Standard Drinks/Week Comments Never 0 (1 standard drink = 0.6 oz pur e alcohol) Comments No Sex and Gender Information Value Date Recorded Sex Assigned at Not on file Legal Sex Female 3:05 PM CDT Gender Identity Not on file Sexual Orientation Not on file Last Filed Vital Signs Vital Sign Reading Time Taken Comments Blood Pressure 163/83 12/23/2023 3:00 PM CDT Pulse 77 12/23/2023 3:00 PM CDT Temperature 36.6 C (97.8 F) 12/23/2023 2:55 PM CDT Respiratory Rate 16 12/23/2023 2:55 PM CDT Oxygen Saturation 97% 12/23/2023 2:55 PM CDT Inhaled Oxygen Concentration - - Weight 115.7 kg (255 lb) 12/23/2023 2:55 PM CDT Height 168.9 cm (5' 6.5 ) 11/16/2023 11:09 AM CD T Body Mass Index 40.54 11/16/2023 11:09 AM CDT Plan of Treatment Upcoming Encounters Date Type Department Care Team (Late st Contact Info) Description 06/22/2024 11:45 AM CDT Office Visit [facility] Oncology and Hematology - [place] [address] [place] [address] Epi Teresa MD [address] [facility] [address] [place] [address] 11/17/2024 10:30 AM CDT Office Visit [facility] [address] [address] [facility] [address] [place] [address] [place] [address] [facility] [address] [place] [address] Health Maintenance Due Date Last Done Comments COLORECTAL SCREENING 10/17/2000 Colorectal Cancer Screening 10/17/2000 FIT-DNA Q 3 years 10/17/2000 FIT/FOBT Q 1 year 10/17/2000 Flex Sig/CT Colonography Q 5 years 10/17/2000 PNEUMOCOCCAL VACCINE 50+ YEA RS (1 of 1 - PCV) 10/17/2005 RSV VACCINE (60+ or ) (1 - Risk 60-74 years 1-dose series) 2015 ZOSTER VACCINE (3 of 3) 08/30/2018 07/05/2018, 07/29 OSTEOPOROSIS SCREENING 10/17/2020 INFLUENZA VACCINE (#1) 2023 9, 01/11/2018, 12/27/2012, Additional history exists BREAST CANCER SCREENING 10/10/2024 10/11/19 24, 07/02/2021, 06/19/2021, Additional history exists Pre-Diabetes and Diabetes Screening 12/08/2026 12/09/2023 DTAP/TDAP/TD VACCINES (3 - T d or Tdap) 07/05/2028 07/05/2018, 04/04/2008 Medical Devices Implanted Type Area Poultry Processor Device Identifier Shelf Expiration Date Model / Serial / Lot Plant Worker Clip Surgiclip Iii Ti Roque Sm 9in [id number] - [id number] Implanted:Qty: 1 on 10/15/2021 by Tammy Gaytan MD at [facility] Clip Left: Axilla MEDTRONIC - COVIDIEN 04/21/2026 [id number] / / [id number] Hemostatic Surgicel 2x3in 1952 - [id number] Implanted:Qty: 1 on 10/15/2021 by Tammy Gaytan MD at [facility] Hemostatic Left: Axilla J&J- [employer] 09/18/20251952 / / [id number] Hemostatic Surgicel 2x3in 1952 - [id number] Implanted:Qty: 1 on 10/15/2021 by Tammy Gaytan MD at [facility] Hemostatic Left: Breast J&J- [employer] 04/21/20261952 / [id number] Procedures Procedure Name Priority Date/Time Associated Diagnosis Comments HEMOGLOBIN A1C Routine 12/09/2023 2:34 PM CDT MAMMO SCREENING BILAT Routine 10/11/2023 4:09 PM CDT from Last 3 Months or Most Recently Relevant to Health Maintenance Results * HEMOGLOBIN A1C (12/09/2023 2:34 PM CDT) Blood Epi Teresa MD CHEMISTRY ORDERABLES Final Resu lt * MAMMO SCREENING BILAT (10/11/2023 4:09 PM CDT) Anatomical Region Laterality Modality Breast Bilateral Other Epi Teresa MD MAMMO ORDERABLES Final Result from Last 3 Months or Most Recently Relevant to Health Maintenance Insurance [facility] [address] [place] [id number] [facility] [id number] FOR LIFE [facility] [id number] [facility] FOR LIFE Advance Directives For more information, please contact: [phone] Documents on File Type Date Recorded Patient Leasing Consultant Expl anation Advance Directive Living Will 10/24/2021 12:44 PM Advance Directive Living Will Care Teams Box Brander Relationship Specialty Start Date End Date Amelia Bowers MD [address] [place] [address] PCP - General Family Practice 01/07/23
--- OUTSIDE RECORDS SUMMARY | 2024-05-25 15:47 | XMS_ITS | Encounter Summary ---
Author Organization [facility] Address [address] [place] [address] Care Team Providers Care Executive Community Planning Name Role Phone Amelia Bowers MD Primary Care Provider [phone] Encounter Details Date Type Department Care Team (Late st Contact Info) Description 05/23/2024 External Device Data STL ABSTRACTION Provider, Abstract NO ADDRESS ON FILE Social History Tobacco Use Types Packs/Day Years Used Date Smoking Tobacco: Never Smokeless Tobacco: Never Alcohol Use Standard Drinks/Week Comments Never 0 (1 standard drink = 0.6 oz pur e alcohol) Comments No Sex and Gender Information Value Date Recorded Sex Assigned at Not on file Legal Sex Female 3:05 PM CDT Gender Identity Not on file Sexual Orientation Not on file documented as of this encounter Plan of Treatment Upcoming Encounters Date Type Department Care Team (Late st Contact Info) Description 06/22/2024 11:45 AM CDT Office Visit [facility] and Hematology - [place] [address] [facility] [address] [place] [address] Epi Teresa MD [address] [facility] [address] [place] [address] 11/17/2024 10:30 AM CDT Office Visit [facility] Breast Surgery [place] [address] [place] [address] [place] [address] [place] [address] documented as of this encounter Visit Diagnoses Not on filedocumented in this encounter Care Teams Executive Community Planning Relationship Specialty Start Date End Date Amelia Bowers MD [address] [place] [id number] PCP - General Family Practice 01/07/23 documented as of this encounter
--- OUTSIDE RECORDS SUMMARY | 2024-05-25 15:47 | XMS_ITS | Clinical Summary ---
Author Organization [address] Address [address] [place] [address] Care Team Providers Care Safety Consultant Name Role Phone Radha Branham Unavailable Amelia Pickett MD Primary Care Provider [phone] Allergies No known active allergies Medications citalopram (CeleXA) 20 mg tablet 09/16/2020 Active Synthroid 75 mcg tablet 09/18/2020 Active loratadine (CLARITIN) 10 mg tablet 11/21/2020 Active omeprazole (PriLOSEC) 20 mg capsule 11/21/2020 Active simvastatin (ZOCOR) 10 mg tablet 11/21/2020 Active telmisartan (MICARDIS) 40 mg tablet 11/26/2020 Active chlorthalidone 25 mg tablet Take 25 mg by mouth daily Active metoprolol XL (TOPROL-XL) 25 mg extended release tablet Take 25 mg by mouth nightly at bedtime. 10/29/2021 Active montelukast (SINGULAIR) 10 mg tablet Take 10 mg by mouth nightly at bedtime 10/29/2021 Active Active Problems Problem Noted Date Diagnosed Date KITTY (obstructive sleep apnea) 12/12/2020 Assessment & Plan (04/29/2023 10:50 AM STRATEGY INTERN): Patient continue to wear CPAP at 12 cm water pressure while sleeping. Her DME is [facility]. Assessment & Plan (01/20/2022 1:32 PM CDT): Will continue with CPAP therapy at 12 cm water pressure. Denied need for supplies. DME [facility] Assessment & Plan (12/12/2020 11:38 AM CDT): The patient continues to benefit from CPAP at 12 cm water pressure. Her DME supplier is [facility]. She will follow-up here in 1 year. PLMD (periodic limb movement disorder) Assessment & Plan (04/29/2023 10:50 AM STRATEGY INTERN): The patient denies that her limbs are moving at night when she sleeps Assessment & Plan (01/20/2022 1:32 PM CDT): Asymptomatic Assessment & Plan (12/12/2020 11:39 AM CDT): The patient is asymptomatic and on no medications for the PLMS in sleep. Surgical History Surgery Date Site/Laterality Comments CARPAL TUNNEL RELEASE TRIGGER FINGER RELEASE Social History Tobacco Use Types Packs/Day Years Used Date Smoking Tobacco: Never Smokeless Tobacco: Never AUDIT-C Answer Date Recorded Q1: How often do you have a drink containing alc ohol? Never 12/12/2020 Average Number of Drinks Not on file 021 Q3: How often do you have si x or more drinks on one occasion? Never 12/12/2020 Comments Unknown Sex and Gender Information Value Date Recorded Sex Assigned at Not on file Legal Sex Female 12:49 AM STRATEGY INTERN Gender Identity Not on file Sexual Orientation Not on file Obstetrics History Last Filed Vital Signs Vital Sign Reading Time Taken Comments Blood Pressure 144/70 04/29/2023 10:12 AM STRATEGY INTERN Pulse 88 04/29/2023 10:12 AM STRATEGY INTERN Temperature 36.6 C (97.9 F) 04/29/2023 10:12 AM STRATEGY INTERN Respiratory Rate 18 04/29/2023 10:12 AM STRATEGY INTERN Oxygen Saturation 96% 04/29/2023 10:12 AM STRATEGY INTERN Inhaled Oxygen Concentration - - Weight 114.8 kg (253 lb) 04/29/2023 10:12 AM STRATEGY INTERN Height 167.6 cm (5' 6 ) 04/29/2023 10:12 AM STRATEGY INTERN Body Mass Index 40.84 04/29/2023 10:12 AM STRATEGY INTERN Plan of Treatment Health Maintenance Due Date Last Done Comments Breast Cancer Screening-Mammogram 1955 Colon Cancer Screening-Colonoscopy 1955 Depression Screening 1955 Fall Risk Assessment 1955 Hepatitis C Screening 1955 Osteoporosis Screening-Bone Density Scan 1955 DTaP/Tdap/Td Vaccine (1 - Tdap) 10/17/1966 Hepatitis B Screening 10/17/1973 Pneumococcal vaccine 65+ (1 of 1 - PCV) 10/17/2005 Zoster Vaccine (1 of 2) 10/17/2005 Well Visit 65+ 10/17/2020 Covid-19 Vaccine (3 - season) 11/21/202301/2021, 06/04/2020 Influenza Vaccine (#1) 2023 01/16/2020, 2017 Insurance [employer] MEDICARE SOLUTIONS MEDICARE SOLUTIONS [employer] me Care Teams Safety Consultant Relationship Specialty Start Date End Date Amelia Bowers MD PCP - General Family Medicine 12/02/20 Radha Branham 12/02/18
--- OUTSIDE RECORDS SUMMARY | 2024-05-25 15:47 | XMS_ITS | Referral Summary ---
Author Organization [address] Address [address] [place] [address] Care Team Providers Care Light Rail Signal Technician Name Role Phone Radha Branham Unavailable Amelia Pickett MD Primary Care Provider Allergies No known active allergies Medications citalopram [...] 12/12/2020 Assessment & Plan (04/29/2023 10:50 AM ARCHITECTURE FACULTY MEMBER): Patient continue to wear CPAP at 12 [...] disorder) Assessment & Plan (04/29/2023 10:50 AM ARCHITECTURE FACULTY MEMBER): The patient denies that her limbs are moving at night when she sleeps Assessment & Plan (01/20/2022 1:32 PM CDT): Asymptomatic Assessment & Plan (12/12/2020 11:39 AM CDT): The patient is asymptomatic and on no medications for the PLMS in sleep. Social History Tobacco Use Types Packs/Day Years [...] on file Legal Sex Female 12:49 AM ARCHITECTURE FACULTY MEMBER Gender Identity Not on file Sexual Orientation Not on file Last Filed Vital Signs Vital Sign Reading Time Taken Comments Blood Pressure 144/70 04/29/2023 10:12 AM ARCHITECTURE FACULTY MEMBER Pulse 88 04/29/2023 10:12 AM ARCHITECTURE FACULTY MEMBER Temperature 36.6 C (97.9 F) 04/29/2023 10:12 AM ARCHITECTURE FACULTY MEMBER Respiratory Rate 18 04/29/2023 10:12 AM ARCHITECTURE FACULTY MEMBER Oxygen Saturation 96% 04/29/2023 10:12 AM ARCHITECTURE FACULTY MEMBER Inhaled Oxygen Concentration - - Weight 114.8 kg (253 lb) 04/29/2023 10:12 AM ARCHITECTURE FACULTY MEMBER Height 167.6 cm (5' 6 ) 04/29/2023 10:12 AM ARCHITECTURE FACULTY MEMBER Body Mass Index 40.84 04/29/2023 10:12 AM ARCHITECTURE FACULTY MEMBER Plan of Treatment Not on file Insurance FOR LIFE MEDICARE SOLUTIONS MEDICARE SOLUTIONS FOR LIFE Care Teams Light Rail Signal Technician Relationship Specialty Start Date End Date Amelia Bowers MD PCP - General Family Medicine 12/02/20 Radha Branham 12/02/18
--- OUTSIDE RECORDS SUMMARY | 2024-05-25 15:47 | XMS_ITS | CONTINUITY OF CARE DOCUMENT ---
Author Name nikki jordan Address Unknown Organization [facility] Address [address] [place] [address] [address] [place] [address] Phone [phone] Care Team Providers Care Polishing Wheel Repairer Name Role Phone Radha Branham MD Unavailable [phone] Radha Branham MD Unavailable [phone] INSURANCE PROVIDERS Payer name Policy type / Coverage type [place] red green party ID VIDAL CHAVIRA
[2024-05-25 15:48] LABS: Iron 58 ug/dL (37-170)
[2024-05-25 15:57] LABS: Percent Iron Saturation 15 % (20-50)
[2024-05-25 16:54] LABS: Sodium Urine Random 77 meq/L
[2024-05-29 16:25] LABS: Osmolality, Urine 421 mOsm/kg (50-1200)
== END 2024-05-25 14:25 | disposition home or self-care (01) ==
PROVIDERS: PCP Family Medicine; Visit Provider Family Medicine
DX: E87.1 Hypo-osmolality and hyponatremia (principal); D64.9 Anemia, unspecified; E78.2 Mixed hyperlipidemia; N18.30 Chronic kidney disease, stage 3 unspecified; E11.9 Type 2 diabetes mellitus without complications
CPT/HCPCS: 36415; 80053; 80061; 81001; 82728; 83036; 83540; 83550; 83930; 83935; 84300; 85027; 87086

== ENCOUNTER 2024-06-15 14:15 | Outpatient (CLI) | payer MEDICARE, OTHER, SELFPAY ==
[2024-06-15 14:32] LABS: Basophils Percent Auto 0.5 % (0.2-1.2); Eosinophils Absolute Auto 0.1 K/mm3 (0-0.3); Eosinophils Percent Auto 1.2 % (0-4.4); Hematocrit 35.7 % (37.0-47.0); Hemoglobin 11.9 g/dL (12.0-15.0); Immature Granulocyte Absolute 0.01 K/mm3 (0.00-0.031); Immature Granulocyte Percent A 0.2 % (0-0.5); Lymphocytes Absolute Auto 1.37 K/mm3 (0.9-3.2); Lymphocytes Percent Auto 24.1 % (18.3-44.2); Mean Corpuscular HGB Conc 33.3 g/dl (32-36); Mean Corpuscular Hemoglobin 29.3 pg (26-34); Mean Corpuscular Volume 87.9 fl (80-100); Mean Platelet Volume 10.2 fl (7.4-10.4); Monocytes Absolute Auto 0.8 K/mm3 (0.1-0.6); Monocytes Percent Auto 13.7 % (2.6-8.5); Neutrophils Absolute Auto 3.4 K/mm3 (1.3-6.7); Neutrophils Percent Auto 60.3 % (45.5-73.1); Platelet Count Result 204 k/mm3 (150-375); Red Blood Count 4.06 M/mm3 (4.2-5.4); Red Cell Distribution Width 13.1 % (11.5-14.5); White Blood Count 5.7 K/mm3 (4.5-10.0)
--- OUTSIDE RECORDS SUMMARY | 2024-06-15 15:09 | XMS_ITS | Clinical Summary ---
Author Organization [address] Address [address] [place] [address] Care Team Providers Care Sponge Packer Name Role Phone Radha Branham Unavailable Amelia [...] 12/12/2020 Assessment & Plan (04/29/2023 10:50 AM SPOOL TENDER): Patient continue to wear CPAP at 12 [...] disorder) Assessment & Plan (04/29/2023 10:50 AM SPOOL TENDER): The patient denies that her limbs are [...] on file Legal Sex Female 12:49 AM SPOOL TENDER Gender Identity Not on file Sexual Orientation Not on file Obstetrics History Last Filed Vital Signs Vital Sign Reading Time Taken Comments Blood Pressure 144/70 04/29/2023 10:12 AM SPOOL TENDER Pulse 88 04/29/2023 10:12 AM SPOOL TENDER Temperature 36.6 C (97.9 F) 04/29/2023 10:12 AM SPOOL TENDER Respiratory Rate 18 04/29/2023 10:12 AM SPOOL TENDER Oxygen Saturation 96% 04/29/2023 10:12 AM SPOOL TENDER Inhaled Oxygen Concentration - - Weight 114.8 kg (253 lb) 04/29/2023 10:12 AM SPOOL TENDER Height 167.6 cm (5' 6 ) 04/29/2023 10:12 AM SPOOL TENDER Body Mass Index 40.84 04/29/2023 10:12 AM SPOOL TENDER Plan of Treatment Health Maintenance Due Date [...] Influenza Vaccine (#1) 2023 01/16/2020, 2017 Insurance [employer] [facility] MEDICARE ADVANTAGE [facility] MEDICARE ADVANTAGE FOR LIFE Care Teams Sponge Packer Relationship Specialty Start Date End Date Amelia Bowers MD PCP - General Family Medicine 12/02/20 Radha Branham 12/02/18
--- OUTSIDE RECORDS SUMMARY | 2024-06-15 15:09 | XMS_ITS | CONTINUITY OF CARE DOCUMENT ---
Author Name nikki jordan Address Unknown Organization [facility] Address [address] [place] [address] [address] [place] [address] Phone [phone] Care Team Providers Care Warehouse Unloader Name Role Phone Radha Branham MD Unavailable Radha Branham MD Unavailable [phone] INSURANCE PROVIDERS Payer name Policy type / Coverage type [place] red constitution party ID VIDAL CHAVIRA
--- OUTSIDE RECORDS SUMMARY | 2024-06-15 15:09 | XMS_ITS | Clinical Summary ---
Author Organization [facility] Address [address] [place] [address] Phone Care Team Providers Care Captain Waiter/Waitress Name Role Phone Amelia Bowers MD Primary Care Provider [phone] Allergies No known active allergies Medications metoprolol [...] Description 06/22/2024 11:45 AM CDT Office Visit [facility]cology [facility] Hematology - [place] [address] [place] [address] Epi Teresa MD [address] [facility] [address] [place] [address] 11/17/2024 10:30 AM CDT [facility] Visit [facility] [place] [address] [place] [address] [place] [address] [facility] [address] [place] [address] Health Maintenance [...] 2023 9, 01/11/2018, 12/27/2012, Additional history exists Medicare Ad[place]age ([place]) Preventative Visit/Annual Wellness Visit 03/22/2024 BREAST CANCER SCREENING 10/10/2024 10/11/19 24, 07/02/2021, 06/19/2021, Additional history exists Pre-Diabetes and Diabetes Screening 12/08/2026 12/09/2023 DTAP/TDAP/TD VACCINES (3 - T d or Tdap) 07/05/2028 07/05/2018, 04/04/2008 Medical Devices Implanted Type Area Improvement Nurse Device Identifier Shelf Expiration Date Model / Serial / Lot Manager Vehicle Clip Surgiclip Iii Ti Roque Sm 9in [id number] - [id number] Implanted:Qty: 1 on 10[facility]15[facility] Clip Left: Axilla [employer]ON[employer] - COVIDIEN 04/21/2026 [id number] / / [id number] Hemostatic Surgicel 2x3in 1952 - [id number] Implanted:Qty: 1 on 10/15/2021 [facility] Hemostatic Left: Axilla J&J- ETHICON INC 09/18/20251952 / [id number] Hemostatic Surgicel 2x3in 1952 - [id number] Implanted:Qty: 1 on 10/15/2021 by Tammy Gaytan MD at [facility] Hemostatic Left: Breast J&J- ETH[employer]ON INC 04/21/20261952 / / [id number] Procedures Procedure Name Priority Date/Time Associated Diagnosis [...] CDT) Anatomical Region Laterality Modality Breast Bilateral Mammography us Epi Teresa MD MAMMO ORDERABLES Final Result from Last 3 Months or Most Recently Relevant to Health Maintenance Insurance [facility] [id number] [facility] Address: [facility] [address] [place] [address] [place] [facility] [id number] [facility] Address: [address] [address] [place] [address] FOR LIFE Advance Directives For more information, please contact: [phone] Documents on File Type Date Recorded Patient Practice Or Student Teacher Expl anation Advance Directive Living Will 10/24/2021 12:44 PM Advance Directive Living Will Care Teams Captain Waiter/Waitress Relationship Specialty Start Date End Date Amelia Bowers MD [address] [place] [phone] PCP - General Family Practice 01/07/23
--- OUTSIDE RECORDS SUMMARY | 2024-06-15 15:09 | XMS_ITS | Referral Summary ---
Author Organization [address] Address [address] [place] [address] Care Team Providers Care Recordist Chief Name Role Phone Radha Branham Unavailable Amelia [...] 12/12/2020 Assessment & Plan (04/29/2023 10:50 AM ABSTRACT MANAGER): Patient continue to wear CPAP at 12 [...] disorder) Assessment & Plan (04/29/2023 10:50 AM ABSTRACT MANAGER): The patient denies that her limbs are [...] on file Legal Sex Female 12:49 AM ABSTRACT MANAGER Gender Identity Not on file Sexual Orientation Not on file Last Filed Vital Signs Vital Sign Reading Time Taken Comments Blood Pressure 144/70 04/29/2023 10:12 AM ABSTRACT MANAGER Pulse 88 04/29/2023 10:12 AM ABSTRACT MANAGER Temperature 36.6 C (97.9 F) 04/29/2023 10:12 AM ABSTRACT MANAGER Respiratory Rate 18 04/29/2023 10:12 AM ABSTRACT MANAGER Oxygen Saturation 96% 04/29/2023 10:12 AM ABSTRACT MANAGER Inhaled Oxygen Concentration - - Weight 114.8 kg (253 lb) 04/29/2023 10:12 AM ABSTRACT MANAGER Height 167.6 cm (5' 6 ) 04/29/2023 10:12 AM ABSTRACT MANAGER Body Mass Index 40.84 04/29/2023 10:12 AM ABSTRACT MANAGER Plan of Treatment Not on file Insurance FOR LIFE [facility] MEDICARE ADVANTAGE [facility] MEDICARE Address: [facility] [address] [place] [address] [facility] MEDICARE ADVANTAGE [facility] MEDICARE Address: [address] [address] [place] [address] FOR LIFE Care Teams Recordist Chief Relationship Specialty Start Date End Date Amelia Bowers MD PCP - General Family Medicine 12/02/20 Radha Branham 12/02/18
[2024-06-15 16:27] LABS: Alanine Aminotransferase 21 U/L (6-35); Albumin Level 4.3 g/dL (3.5-5.1); Alkaline Phosphatase 104 U/L (38-126); Anion Gap 8 mmol/L (4-12); Aspartate Amino Transferase 59 U/L (14-36); Bilirubin,Total 0.6 mg/dL (0.2-1.3); Blood Urea Nitrogen 21 mg/dL (7-17); Calcium 10.1 mg/dL (8.4-10.2); Carbon Dioxide 31 mmol/L (22-30); Chloride 98 mmol/L (98-107); Estimated Glomerular Filt Rate 58; Glucose 98 mg/dL (65-110); Potassium 3.7 mmol/L (3.4-5.0); Sodium 137 mmol/L (137-145)
[2024-06-16 10:13] LABS: CA 15-3 19 U/mL (<32)
== END 2024-06-15 14:16 | disposition home or self-care (01) ==
LOC: ANHLAB 14:16
PROVIDERS: PCP Family Medicine; Visit Provider Internal Medicine Hematology & Oncology
DX: C50.912 Malignant neoplasm of unspecified site of left female breast (principal)
CPT/HCPCS: 36415; 80053; 85025; 86300

== ENCOUNTER 2024-10-23 09:21 | Outpatient (CLI) | payer MEDICARE, OTHER, SELFPAY ==
--- OUTSIDE RECORDS SUMMARY | 2024-10-23 09:44 | XMS_ITS | Patient Health Record ---
Author Organization [facility] Address [address] [place], [place] [id number] Care Team Providers Care Fast Food Delivery Driver Name Role Phone Albertosam ARDEN Unavailable [phone] Amelia Bowers Unavailable Unavailable Reason For Referral No Information Plan Of Treatment No Information Insurance Providers Payer Name Payer Address Payer Phone Subscriber Number Group Number Insured Name Patient Relationship to Insured Coverage Start Date Coverage End Date AARP MedicareCom plete ([facility]) [address] [place], [place] [id number] JENNIFER MENDEZ Self - patient is the insured for Life ([employer]) [address] [place], [place] [id number] JENNIFER MENDEZ Self - patient is the insured
--- OUTSIDE RECORDS SUMMARY | 2024-10-23 09:44 | XMS_ITS | Clinical Summary ---
Author Organization Katie Jenkins [facility] Address [address] [place] [address] Phone Care Team Providers Care Commercial Litigation Paralegal Name Role Phone Amelia Bowers MD Primary Care Provider [phone] Allergies No known active allergies Medications metoprolol [...] Encounters Date Type Department Care Team Description 10/04/2024 External Device Data STL ABSTRACTION Provider, Abstract 10/04/2024 External Device Data STL ABSTRACTION Provider, Abstract 09/06/2024 External Device Data STL ABSTRACTION Provider, Abstract 08/09/2024 External Device Data STL ABSTRACTION Provider, Abstract 08/08/2024 External Device Data STL ABSTRACTION Provider, Abstract [...] Sign Reading Time Taken Comments Blood Pressure 144/76 06/22/2024 11:25 AM CDT Pulse 73 06/22/2024 11:23 AM CDT Temperature 36.2 C (97.2 F) 06/22/2024 11:23 AM CDT Respiratory Rate 16 06/22/2024 11:23 AM CDT Oxygen Saturation 97% 06/22/2024 11:23 AM CDT Inhaled Oxygen Concentration - - Weight 114 kg (251 lb 6.4 oz) 06/22/2024 11:23 A M CDT Height 168.9 cm (5' 6.5) 11/16/2023 11:09 AM CD T Body Mass Index 39.97 11/16/2023 11:09 AM CDT Plan of Treatment Upcoming Encounters Date Type Department Care Team (Late st Contact Info) Description 11/17/2024 10:30 AM CDT Office Visit [facility] Breast Surgery [place] [address] [place] [phone] [place] [address] [place] [phone] 12/25/2024 11:00 AM CDT Office Visit [facility] Oncology and Hematology - [place] [address] [place] [address] Epi Teresa MD [address] [facility] [address] [place] [address] Health Maintenance Due Date Last Done Comments COLORECTAL SCREENING 10/17/2000 Colorectal Cancer Screening 10/17/2000 FIT-DNA Q 3 years 10/17/2000 FIT/FOBT Q 1 year 10/17/2000 Flex Sig/CT Colonography Q 5 years 10/17/2000 PNEUMOCOCCAL VACCINE 50+ YEA RS (1 of 1 - PCV) 10/17/2005 ZOSTER VACCINE (3 of 3) 08/30/2018 07/05/2018, 07/29 OSTEOPOROSIS SCREENING 10/17/2020 BREAST CANCER SCREENING 10/10/2024 10/11/19 24, 07/02/2021, 06/19/2021, Additional history exists INFLUENZA VACCINE (#1) 2024 9, 01/11/2018, 12/27/2012, Additional history exists Pre-Diabetes and Diabetes Screening 12/08/2026 12/09/2023 DTAP/TDAP/TD VACCINES (3 - T d or Tdap) 07/05/2028 07/05/2018, 04/04/2008 RSV VACCINE (60+ or ) (1 - 1-dose 75+ series) 10/17/2030 Medical Devices Implanted Type Area Sample Patternmaker Device Identifier Shelf Expiration Date Model / Serial / Lot Testing Lead Clip Surgiclip Iii Ti Roque Sm 9in [id number] - [id number] Implanted:Qty: 1 on 10/15/2021 by Tammy Gaytan MD at [facility] Clip Left: Axilla [employer] - COVIDIEN 04/21/2026 [id number] / / [id number] Hemostatic Surgicel 2x3in 1952 - [id number] Implanted:Qty: 1 on 10/15/2021 by Tammy Gaytan MD at [facility] Hemostatic Left: Axilla J&J- [employer] 09/18/20251952 / / [id number] Hemostatic Surgicel 2x3in 1952 - [id number] Implanted:Qty: 1 on 10/15/2021 by Tammy Gaytan MD at [facility] Hemostatic Left: Breast J&J- [employer] 04/21/20261952 [id number] Procedures Procedure Name Priority Date/Time Associated Diagnosis [...] Anatomical Region Laterality Modality Breast Bilateral Mammography Epi Teresa MD MAMMO ORDERABLES Final Result from Last 3 Months or Most Recently Relevant to Health Maintenance Insurance [facility] [address] [place] [id number] [facility] [id number] [facility] Address: [place] [id number] [place] [address] FOR LIFE [facility] [id number] FOR LIFE Advance Directives For more information, please contact: [phone] Documents on File Type Date Recorded Patient Car Top Bolter Expl anation Advance Directive Living Will 10/24/2021 12:44 PM Advance Directive Living Will Care Teams Commercial Litigation Paralegal Relationship Specialty Start Date End Date Amelia Bowers MD [address] [place] [address] PCP - General Family Practice 01/07/23
--- OUTSIDE RECORDS SUMMARY | 2024-10-23 09:44 | XMS_ITS | Referral Summary ---
Author Organization [address] Address [address] [place] [address] Care Team Providers Care Litigation Claim Representative Name Role Phone Radha Branham Laura S. MD Primary Care Provider [phone] Encounters Date Type Department Care Team Description 08/03/2024 11:45 AM CDT Office Visit [facility] Pulmonary [address] [place] [address] Barbi Mancuso NP KITTY (obstructive sleep apnea) (Primary Dx); PLMD (periodic limb movement disorder) from Last 3 Months Allergies No known active allergies Medications citalopram (CeleXA) 20 mg tablet 09/16/2020 Active Synthroid 75 mcg tablet 09/18/2020 Active loratadine (CLARITIN) 10 mg tablet 11/21/2020 Active omeprazole (PriLOSEC) 20 mg capsule 11/21/2020 Active simvastatin (ZOCOR) 10 mg tablet 11/21/2020 Active telmisartan (MICARDIS) 40 mg tablet 11/26/2020 Active chlorthalidone 25 mg tablet Take 1 tablet (25 mg total) by mouth daily Active metoprolol XL (TOPROL-XL) 25 mg extended release tablet Take 1 tablet (25 mg total) by mouth nightly at bedtime. 10/29/2021 Active montelukast (SINGULAIR) 10 mg tablet Take 1 tablet (10 mg total) by mouth nightly at bedtime 10/29/2021 Active Active Problems Problem Noted Date Diagnosed Date KITTY (obstructive sleep apnea) 12/12/2020 Assessment & Plan (08/03/2024 11:45 AM CDT): Patient continue to wear CPAP at 12 cm water pressure while sleeping. Her DME is [facility]. Assessment & Plan (04/29/2023 10:50 AM WAD BLANKING PRESS ADJUSTER): Patient continue to wear CPAP at 12 cm water pressure while sleeping. Her DME is [facility]. Assessment & Plan (01/20/2022 1:32 PM CDT): Will continue with CPAP therapy at 12 cm water pressure. Denied need for supplies. DME [facility] Assessment & Plan (12/12/2020 11:38 AM CDT): The patient continues to benefit from CPAP at 12 cm water pressure. Her DME supplier is [facility]. She will follow-up here in 1 year. PLMD (periodic limb movement disorder) Assessment & Plan (08/03/2024 11:45 AM CDT): The patient is unaware that her limbs are moving at night when she sleeps. Assessment & Plan (04/29/2023 10:50 AM WAD BLANKING PRESS ADJUSTER): The patient denies that her limbs are [...] on file Legal Sex Female 12:49 AM WAD BLANKING PRESS ADJUSTER Gender Identity Not on file Sexual Orientation Not on file Last Filed Vital Signs Vital Sign Reading Time Taken Comments Blood Pressure 122/70 08/03/2024 11:32 AM CDT Pulse 70 08/03/2024 11:32 AM CDT Temperature 36.1 C (96.9 F) 08/03/2024 11:32 AM CDT Respiratory Rate 12 08/03/2024 11:3 2 AM CDT Oxygen Saturation 98% 08/03/2024 11: 32 AM CDT Inhaled Oxygen Concentration - - Weight 112.5 kg (248 lb 1.6 oz) 025 11:32 AM CDT Height 167.6 cm (5' 6) 08/03/2024 11:3 2 AM CDT Body Mass Index 40.04 08/03/2024 11:32 AM CDT Plan of Treatment Not on file Insurance [employer] [facility] MEDICARE ADVANTAGE [facility] MEDICARE Address: [address] [address] [place] [address] [facility] MEDICARE ADVANTAGE [facility] MEDICARE Address: [facility] [address] [place] [address] FOR LIFE Care Teams Litigation Claim Representative Relationship Specialty Start Date End Date Amelia Bowers MD PCP - General Family Medicine 12/02/20 Radha Branham 12/02/18
--- OUTSIDE RECORDS SUMMARY | 2024-10-23 09:44 | XMS_ITS | Clinical Summary ---
Author Organization [address] Address [address] [place] [address] Care Team Providers Care Thermodynamics Engineer Name Role Phone Radha Branham Laura S. MD Primary Care Provider [phone] Allergies No known active allergies Medications citalopram [...] [employer]. Assessment & Plan (04/29/2023 10:50 AM GREENS TIER): Patient continue to wear CPAP at 12 [...] sleeps. Assessment & Plan (04/29/2023 10:50 AM GREENS TIER): The patient denies that her limbs are moving at night when she sleeps Assessment & Plan (01/20/2022 1:32 PM CDT): Asymptomatic Assessment & Plan (12/12/2020 11:39 AM CDT): The patient is asymptomatic and on no medications for the PLMS in sleep. Encounters Date Type Department Care Team Description 08/03/2024 11:45 AM CDT Office Visit [facility] [address] [place] [address] Barbi Mancuso NP KITTY (obstructive sleep apnea) (Primary Dx); PLMD (periodic limb movement disorder) from Last 3 Months Surgical History Surgery Date Site/Laterality Comments CARPAL TUNNEL RELEASE TRIGGER FINGER RELEASE Social History Tobacco Use Types Packs/Day Years Used Date Smoking Tobacco: Never Smokeless Tobacco: Never AUDIT-C Answer Date Recorded Q1: How often do you have a drink containing alc ohol? Never 12/12/2020 Average Number of Drinks Not on file Q3: How often do you have si x or more drinks on one occasion? Never 12/12/2020 Comments Unknown Sex and Gender Information Value Date Recorded Sex Assigned at Not on file Legal Sex Female 12:49 AM GREENS TIER Gender Identity Not on file Sexual Orientation [...] 08/03/2024 11:32 AM CDT Plan of Treatment Health Maintenance Due Date [...] 10/17/2005 Well Visit 65+ 10/17/2020 Covid-19 Vaccine ( season) 11/21/202301/2021, 06/04/2020 Influenza Vaccine (#1) 2024 01/16/2020, 2017 Insurance [employer] [facility] MEDICARE ADVANTAGE [facility] MEDICARE ADVANTAGE FOR LIFE Care Teams Thermodynamics Engineer Relationship Specialty Start Date End Date Amelia Bowers MD PCP - General Family Medicine 12/02/20 Radha Branham 12/02/18
[2024-10-23 10:41] LABS: Alanine Aminotransferase 19 U/L (6-35); Albumin Level 4.0 g/dL (3.5-5.1); Alkaline Phosphatase 89 U/L (38-126); Anion Gap 6 mmol/L (4-12); Aspartate Amino Transferase 46 U/L (14-36); Bilirubin,Total 0.4 mg/dL (0.2-1.3); Blood Urea Nitrogen 22 mg/dL (7-17); Calcium 9.9 mg/dL (8.4-10.2); Carbon Dioxide 30 mmol/L (22-30); Chloride 102 mmol/L (98-107); Cholesterol 162 mg/dL (0-200); Estimated Glomerular Filt Rate 53; Glucose 107 mg/dL (65-110); HDL Direct 46 mg/dL; Potassium 3.6 mmol/L (3.4-5.0); Sodium 138 mmol/L (137-145); Total Protein 6.8 g/dL (6.3-8.2); Triglycerides 120 mg/dL (<150)
[2024-10-23 10:57] LABS: Hemoglobin A1C 5.7 % (<5.7)
[2024-10-23 11:34] LABS: Thyroid Stimulating Hormone Reflex 3.340 uIU/mL (0.465-4.68)
== END 2024-10-23 09:22 | disposition home or self-care (01) ==
LOC: ANHLAB 09:32
PROVIDERS: PCP Family Medicine; Visit Provider Family Medicine
DX: E03.9 Hypothyroidism, unspecified (principal); R73.03 Prediabetes; E78.2 Mixed hyperlipidemia; E55.9 Vitamin D deficiency, unspecified
CPT/HCPCS: 36415; 80053; 80061; 82306; 83036; 84443

== ENCOUNTER 2024-11-14 09:52 | Outpatient (CLI) | payer MEDICARE, OTHER, SELFPAY ==
--- NOTE | ~2024-11-14 | MM_ITS ---
EXAMINATION: screening [facility] BI w efrain INDICATION: Asymptomatic, referred for screening mammogram. History of Left COMPARISON: 03/12/2024 through 01/27/2018 TECHNIQUE: Full field digital CC, MLO views were obtained of Both breasts with computer-aided detection to assist in interpretation of the study. FINDINGS: There are scattered areas of fibroglandular density. Posttreatment changes in Left breast are stable. No new focal dominant mass, architectural distortion, or suspicious microcalcifications are identified. There are no features to suggest malignancy. IMPRESSION: Stable benign mammogram. No evidence of malignancy in the breast. BI-RADS 2, BENIGN Reviewed, dictated and finalized at location B.
--- OUTSIDE RECORDS SUMMARY | 2024-11-14 10:16 | XMS_ITS | Clinical Summary ---
Author Organization [address] Address [address] [place] [address] Care Team Providers Care Paper Carrier Name Role Phone Radha Branham Unavailable Amelia Pickett MD Primary Care Provider [phone] Allergies No known active allergies Medications citalopram [...] [employer]. Assessment & Plan (04/29/2023 10:50 AM DIRECTOR INDEX): Patient continue to wear CPAP at 12 [...] sleeps. Assessment & Plan (04/29/2023 10:50 AM DIRECTOR INDEX): The patient denies that her limbs are [...] on file Legal Sex Female 12:49 AM DIRECTOR INDEX Gender Identity Not on file Sexual Orientation [...] - season) 11/21/202301/2021, 06/04/2020 Influenza Vaccine (#1) 2024 01/16/2020, 2017 Insurance [employer] [facility] MEDICARE ADVANTAGE [facility] MEDICARE ADVANTAGE [place] [id number] FOR LIFE Care Teams Paper Carrier Relationship Specialty Start Date End Date Amelia Bowers MD PCP - General Family Medicine 12/02/20 Radha Branham 12/02/18
--- OUTSIDE RECORDS SUMMARY | 2024-11-14 10:17 | XMS_ITS | Patient Health Record ---
Author Organization [facility] Address [address] [place], [place] [id number] Care Team Providers Care Tamper Operator Name Role Phone Albertosam ARDEN Unavailable [phone] Amelia Bowers Unavailable Unavailable Reason For Referral No Information Plan Of Treatment No Information Insurance Providers Payer Name Payer Address Payer Phone Subscriber Number Group Number Insured Name Patient Relationship to Insured Coverage Start Date Coverage End Date AARP MedicareCom plete ([facility]) [address] [place], [place] [id number] JENNIFER MENDEZ Self - patient is the insured for Life (All Regions) [address] [place], [place] [id number] JNENIFER MENDEZ Self - patient is the insured
--- OUTSIDE RECORDS SUMMARY | 2024-11-14 10:17 | XMS_ITS | Clinical Summary ---
Author Organization Katie [facility] Address [address] [place] [address] Phone Care Team Providers Care Document Restorer Name Role Phone Amelia Bowers MD Primary Care Provider [phone] Allergies No known active allergies Medications metoprolol succinate (TOPROL XL) 25 mg Extended Release 24 hour tablet Take 25 mg by mouth daily at bedtime. 05/07/19 22 Active omeprazole (PriLOSEC) 40 mg Capsule, Delayed Release(E.C.) Take 40 mg by mouth daily. 05/07/19 22 Active chlorthalidone (HYGROTON) 25 mg tablet 05/23/19 22 Active montelukast (SINGULAIR) 10 mg tablet 05/07/19 22 Active citalopram (CeleXA) 20 mg tablet 03/24/19 23 Active azelastine (ASTELIN) 137 mcg/actuation nasal spray Administer 2 Sprays in each nostril see administration instructions. 11/23/19 24 Active montelukast (SINGULAIR) 10 mg tablet Take 10 mg by mouth. 10/25/19 24 025 Active Problems Patient Care Coordination No te [...] Encounters Date Type Department Care Team Description 10/31/2024 External Device Data STL ABSTRACTION Provider, Abstract [...] Description 11/17/2024 10:30 AM CDT Office Visit [facility] Breast Surgery [address] [place] [phone] [place] [address] [address] [place] [phone] 12/25/2024 11:00 AM CDT Office Visit [facility] Oncology and Hematology - [place] [address] [place] [address] Epi Teresa MD [address] [facility] [address] [place] [address] Health Maintenance Due Date Last [...] series) 10/17/2030 Medical Devices Implanted Type Area Production Operations Inspector Device Identifier Shelf Expiration Date Model / Serial / Lot Web Content Producer Clip Surgiclip Iii Ti Roque Sm 9in [id number] - [id number] Implanted:Qty: 1 on 10/15/2021 by Tammy Gaytan MD at [facility] Clip Left: Axilla [employer] - COVIDIEN 04/21/2026 [id number] / / [id number] Hemostatic Surgicel 2x3in 1952 - [id number] Implanted:Qty: 1 on 10/15/2021 by Tammy Gaytan MD at [facility] Hemostatic Left: Axilla J&J- [employer] 09/18/2025 1953 / / [id number] Hemostatic Surgicel 2x3in 1952 - [id number] Implanted:Qty: 1 on 10/15/2021 by Tammy Gaytan MD at [facility] Left: Breast J&J- [employer] 04/21/20261952 [id number] Procedures Procedure Name Priority Date/Time Associated Diagnosis Comments HEMOGLOBIN A1C Routine 12/09/2023 2:34 PM CDT MAMMO SCREENING BILAT Routine 10/11/2023 4:09 PM CDT from Last 3 Months or Most Recently Relevant to Health Maintenance Results * HEMOGLOBIN A1C (12/09/2023 2:34 PM CDT) Blood us Epi Teresa MD CHEMISTRY ORDERABLES Final Resu lt * MAMMO SCREENING BILAT (10/11/2023 4:09 PM CDT) Anatomical Region Laterality Modality Breast Bilateral Mammography us Epi Teresa MD MAMMO ORDERABLES Final Result from Last 3 Months or Most Recently Relevant to Health Maintenance Insurance [facility] [id number] [facility] Address: [address] [address] [place] [address] [employer] [facility] [id number] [facility] Address: [address] [address] [place] [address] FOR LIFE Advance Directives For more information, please contact: [phone] Documents on File Type Date Recorded Patient Protein Purification Scientist Expl anation Advance Directive Living Will 10/24/2021 12:44 PM Advance Directive Living Will Care Teams Document Restorer Relationship Specialty Start Date End Date Amelia Bowers MD [address] [place] [phone] PCP - General Family Practice 01/07/23
== END 2024-11-14 09:53 | disposition home or self-care (01) ==
LOC: ANHFOHIMG 09:53
PROVIDERS: PCP Family Medicine; Visit Provider Internal Medicine Hematology & Oncology
DX: Z12.31 Encounter for screening mammogram for malignant neoplasm of breast (principal)
CPT/HCPCS: 77063; 77067

== ENCOUNTER 2024-12-19 14:50 | Outpatient (CLI) | payer MEDICARE, OTHER, SELFPAY ==
--- OUTSIDE RECORDS SUMMARY | 2024-12-19 15:00 | XMS_ITS | Patient Health Record ---
Author Organization [facility] Address [address] [place], [place] [phone] Care Team Providers Care Multiple Spindle Screw Machine Operator Name Role Phone Albertosam ARDEN Unavailable [phone] Amelia Bowers Unavailable Unavailable Reason For Referral No Information Plan Of Treatment No Information Insurance Providers Payer Name Payer Address Payer Phone Subscriber Number Group Number Insured Name Patient Relationship to Insured Coverage Start Date Coverage End Date AARP MedicareCom plete ([facility]) [address] [place], [place] [id number] JENNIFER MENDEZ Self - patient is the insured for Life ([employer]) [address] [place], [place] [id number] LATRELLTSERING JENNIFER Self - patient is the insured
--- OUTSIDE RECORDS SUMMARY | 2024-12-19 15:00 | XMS_ITS | Clinical Summary ---
Author Organization [address] Address [address] [place] [address] Care Team Providers Care Clinical Data Assistant Name Role Phone Radha Branham Unavailable Amelia Pickett MD Primary Care Provider [phone] Allergies No known active allergies Medications citalopram [...] [employer]. Assessment & Plan (04/29/2023 10:50 AM PROCTOLOGIST): Patient continue to wear CPAP at 12 [...] sleeps. Assessment & Plan (04/29/2023 10:50 AM PROCTOLOGIST): The patient denies that her limbs are [...] on file Legal Sex Female 12:49 AM PROCTOLOGIST Gender Identity Not on file Sexual Orientation [...] 65+ 10/17/2020 Covid-19 Vaccine (3 - season) 11/20/202401/2021, 06/04/2020 Influenza Vaccine (#1) 2024 01/16/2020, 2017 Insurance [email or web address] [facility] MEDICARE ADVANTAGE [facility] Address: [address] [address] [place] [address] [facility] MEDICARE ADVANTAGE [facility] Address: [facility] [address] [place] [id number] FOR LIFE Care Teams Clinical Data Assistant Relationship Specialty Start Date End Date Amelia Bowers MD PCP - General Family Medicine 12/02/20 Radha Branham 12/02/18
--- OUTSIDE RECORDS SUMMARY | 2024-12-19 15:01 | XMS_ITS | Clinical Summary ---
Author Organization [facility] Address [address] [place] [address] Phone Care Team Providers Care Stenciling Machine Tender Name Role Phone Amelia Bowers MD Primary Care Provider [phone] Allergies No known active allergies Medications metoprolol succinate (TOPROL XL) 25 mg Extended Release 24 hour tablet Take 25 mg by mouth daily at bedtime. 2 Active omeprazole (PriLOSEC) 40 mg Capsule, Delayed Release(E.C.) Take 40 mg by mouth daily. 2 Active chlorthalidone (HYGROTON) 25 mg tablet 2 Active citalopram (CeleXA) 20 mg tablet 3 Active azelastine (ASTELIN) 137 mcg/actuation nasal spray Administer 2 Sprays in each nostril see administration instructions. 4 Active montelukast (SINGULAIR) 10 mg tablet Take 10 mg by mouth. 5 Active loratadine (CLARITIN) 10 mg tablet Take 10 mg by mouth daily. 5 Active Active Problems Patient Care Coordination No [...] Encounters Date Type Department Care Team Description 12/05/2024 External Device Data ST[facility] ABSTRACTION Provider, Abstract 11/21/2024 External Device Data [facility] ABSTRACTION Provider, Abstract 11/17/2024 10:30 AM CDT Office Visit [facility] Breast Surgery Antoni White [address] [place] [phone] Tammy Gaytan MD History of partial mastectomy, left (Primary Dx); History of left breast cancer; Family history of breast cancer in sister 11/15/2024 Orders Only [facility] - [place] [address] [place] [address] Epi Teresa MD 10/31/2024 External Device Data ST[facility] ABSTRACTION Provider, [...] drink = 0.6 oz pur e alcohol) Feeling Safe Answer Date Recorded Do you worry about feeling s afe and happy with the people in your life? No 11/17/2024 Comments No Sex and Gender Information Value Date Recorded Sex Assigned at Not on file Legal Sex Female 3:05 PM CDT Gender Identity Not on file Sexual Orientation Not on file Last Filed Vital Signs Vital Sign Reading Time Taken Comments Blood Pressure 131/85 11/17/2024 10:32 AM CDT Pulse 64 11/17/2024 10:32 AM CDT Temperature 36.2 C (97.2 F) 06/22/2024 11:23 AM CDT Respiratory Rate 16 06/22/2024 11:23 AM CDT Oxygen Saturation 97% 06/22/2024 11:23 AM CDT Inhaled Oxygen Concentration - - Weight 112 kg (247 lb) 11/17/2024 10:32 AM CDT Height 168.9 cm (5' 6.5) 11/17/2024 10:32 AM CD T Body Mass Index 39.27 11/17/2024 10:32 AM CDT Plan of Treatment Upcoming Encounters Date Type Department Care Team (Late st Contact Info) Description 12/25/2024 11:00 AM CDT Office Visit [facility] - [place] [address] [facility] [address] [place] [address] Epi Teresa MD [address] [facility] [address] [place] [address] 11/23/2025 10:30 AM CDT Office Visit [facility] Breast Surgery Antoni White [address] [place] [phone] [place] [address] [place] [address] Health Maintenance Due Date Last Done Comments COLORECTAL SCREENING 10/17/2000 Colorectal Cancer Screening 10/17/2000 FIT-DNA Q 3 years 10/17/2000 FIT/FOBT Q 1 year 10/17/2000 Flex Sig/CT Colonography Q 5 years 10/17/2000 RSV VACCINE (60+ or ) (1 - Risk 60-74 years 1-dose series) 2015 OSTEOPOROSIS SCREENING 10/17/2020 PNEUMOCOCCAL VACCINE 50+ YEA RS (2 of 2 - PCV) 05/07/2022 05/07/2021 Medicare [place]age ([place]) Preventative Visit/Annual Wellness Visit 03/22/2024 INFLUENZA VACCINE (#1) 2024 3, 01/08/2022, 01/17/2021, Additional history exists BREAST CANCER SCREENING 11/14/2025 11/15/19 25, 10/11/2023, 07/02/2021, Additional history exists Pre-Diabetes and Diabetes Screening 12/08/2026 12/09/2023 DTAP/TDAP/TD VACCINES (3 - T d or Tdap) 07/05/2028 07/05/2018, 04/04/2008 ZOSTER VACCINE Completed 01/17/2021, 06/20, 07/29/2016 Medical Devices Implanted Type Area Glue Machine Operator Device Identifier Shelf Expiration Date Model / Serial / Lot Salesperson Men'S Furnishings Clip Surgiclip Iii Ti Roque Sm 9in [id number] - [id number] Implanted:Qty: 1 on 10/15/2021 by Tammy Gaytan MD at [facility] Clip Left: Axilla [employer] - COVID[employer]EN 04/21/2026 [id number] / / [id number] Hemostatic Surgicel 2x3in 1952 - [id number] Implanted:Qty: 1 on 10/15/2021 by Tammy Gaytan MD at [facility] Hemostatic Left: Axilla [employer] 09/18/20253 / / [id number] Hemostatic Surgicel 2x3in 1952 - [id number] Implanted:Qty: 1 on 10/15/2021 by Tammy Gaytan MD at [facility] Hemostatic Left: Breast [employer] 04/21/20263 / / [id number] Procedures Procedure Name Priority Date/Time Associated Diagnosis Comments MAMMO SCREENING BILAT Routine 11/14/2024 7:52 AM CDT HEMOGLOBIN A1C Routine 12/09/2023 2:34 PM CDT from Last 3 Months or Most Recently Relevant to Health Maintenance Results * MAMMO SCREENING BILAT (11/14/2024 7:52 AM CDT) Anatomical Region Laterality Modality Breast Bilateral Mammography us Epi Teresa MD MAMMO ORDERABLES Final Result * HEMOGLOBIN A1C (12/09/2023 2:34 PM CDT) Blood us Epi Teresa MD CHEMISTRY ORDERABLES Final Resu lt from Last 3 Months or Most Recently Relevant to Health Maintenance Insurance [facility] [id number] [facility] [id number] [place] [id number] FOR LIFE Advance Directives For more information, please contact: [phone] Documents on File Type Date Recorded Patient Advertising Vice President Expl anation Advance Directive Living Will 10/24/2021 12:44 PM Advance Directive Living Will Care Teams Stenciling Machine Tender Relationship Specialty Start Date End Date Amelia Bowers MD [address] [place] [phone] PCP - General Family Practice 01/07/23
[2024-12-19 15:06] LABS: Hematocrit 35.6 % (37.0-47.0); Hemoglobin 11.8 g/dL (12.0-15.0); Immature Granulocyte Percent A 0.2 % (0-0.5); Lymphocytes Absolute Auto 1.57 K/mm3 (0.9-3.2); Mean Corpuscular HGB Conc 33.1 g/dl (32-36); Mean Corpuscular Hemoglobin 29.7 pg (26-34); Mean Corpuscular Volume 89.7 fl (80-100); Nucleated Red Blood Cells Absolute Auto 0.000 K/mm3 (0.0-0.012); Nucleated Red Blood Cells Perc 0.0 % (0.0-0.2); Platelet Count Result 189 k/mm3 (150-375); Red Blood Count 3.97 M/mm3 (4.2-5.4); White Blood Count 5.8 K/mm3 (4.5-10.0)
[2024-12-19 16:39] LABS: Alanine Aminotransferase 22 U/L (6-35); Albumin Level 4.1 g/dL (3.5-5.1); Alkaline Phosphatase 92 U/L (38-126); Anion Gap 9 mmol/L (4-12); Aspartate Amino Transferase 48 U/L (14-36); Bilirubin,Total 0.3 mg/dL (0.2-1.3); Blood Urea Nitrogen 20 mg/dL (7-17); Calcium 9.5 mg/dL (8.4-10.2); Carbon Dioxide 29 mmol/L (22-30); Chloride 101 mmol/L (98-107); Estimated Glomerular Filt Rate 57; Glucose 107 mg/dL (65-110); Potassium 3.8 mmol/L (3.4-5.0); Sodium 139 mmol/L (137-145); Total Protein 7.0 g/dL (6.3-8.2)
== END 2024-12-19 14:51 | disposition home or self-care (01) ==
PROVIDERS: PCP Family Medicine; Visit Provider Internal Medicine Hematology & Oncology
DX: C50.912 Malignant neoplasm of unspecified site of left female breast (principal)
CPT/HCPCS: 36415; 80053; 85025; 86300